=== PATIENT | female | born 1950 | race Caucasian/White ===

== ENCOUNTER 2018-08-30 11:34 | Inpatient (IN) | payer OTHER, SELFPAY ==
[2018-08-17 08:16] VITALS: BMI 30.2
[2018-08-30] VITALS (14 sets, daily range): BP systolic 90–126; BP diastolic 52–81; PULSE 57–80; RESP 9–25; TEMP 35.8–36.9; O2SAT 93–100; BMI 29.6
--- NOTE | 2018-08-30 | DI.RAD.S_ITS ---
PROCEDURE: XR PELVIS 1-2V INDICATIONS: INTRA OPERATIVE HIP TECHNIQUE: 1 view of the lower pelvis acquired. COMPARISON: None. FINDINGS: Bones: Patient is status post total hip arthroplasty, with hardware components in expected positions. The hip joint appears congruent. The visualized bony structures appear intact. Soft tissues: Overlying postoperative changes are noted. No suspicious soft tissue densities. IMPRESSION: Expected appearance of left hip arthroplasty. Dictated by: Zoey Lloyd M.D. on 08/30/2018 at 17:11 Approved by: Zoey Lloyd M.D. on 08/30/2018 at 17:12
--- NOTE | 2018-08-30 06:00 | DI.RAD.S_ITS ---
PROCEDURE: XR HIP W PEL IF DONE LT 2V INDICATIONS: Postop left total hip arthroplasty TECHNIQUE: AP pelvis and lateral view of the left hip acquired. COMPARISON: [facility], XR PELVIS WITH LATERAL HIP LEFT, 05/25/2018, 11:10. FINDINGS: Bones: Patient is status post left hip arthroplasty, with hardware components in expected positions. The hip joint appears congruent. The visualized bony structures appear intact. Soft tissues: Overlying postoperative changes are noted. No suspicious soft tissue densities. IMPRESSION: Left hip arthroplasty as above. Dictated by: Bethanie Judd M.D. on 08/30/2018 at 17:12 Approved by: Bethanie Judd M.D. on 08/30/2018 at 17:13
[2018-08-30] MEDS: LACTATED RINGERS 1,000 ML 42 ML IV ×2 (12:11→16:15)
[2018-08-30] MEDS: VANCOMYCIN 1,000 MG/200 ML FROZ.PIGGY 200 MG IV (12:58)
[2018-08-30] MEDS: PREGABALIN 75 MG CAPSULE PO (13:07)
[2018-08-30] MEDS: ACETAMINOPHEN 325 MG TABLET 975 MG PO ×2 (13:07→20:48)
[2018-08-30] MEDS: MELOXICAM 7.5 MG TABLET 15 MG PO (13:09)
--- NOTE | 2018-08-30 13:37 | PM.PREOP ---
Pre-operative Note Interval Note History & Physical reviewed/Exam performed by Physician: Yes Changes to H&P: No
--- NOTE | 2018-08-30 13:42 | P.OP_ITS ---
Operative Date/Time/Diagnoses Date of procedure: 08/30/18 Time of procedure: 13:58 Pre-op diagnosis: Left hip osteoarthritis Post-op diagnosis: same Procedure & Clinicians Procedure: Left total hip arthroplasty Same procedure as scheduled: Yes Indications: The patient has had progressively worsening left hip pain with radiographic changes consistent with arthritis. Non-operative management has failed and the patient has requested total hip replacement. The risks, benefits and alternatives to surgery were discussed with the patient prior to proceeding. Risks discussed included, but were not limited to, failure to relieve pain, leg length discrepancy, dislocation, stiffness, infection, nerve damage, deep venous thrombosis, pulmonary embolism, stroke, coma, heart attack, permanent paralysis and , as well as the potential need for eventual revision of the prosthetic. Surgeon: Alyx Bird Reeling And Tubing Machine Operator: Vida Harris Anesthesia Type: General and Spinal Operative Notes Findings: Severe left hip arthritis, adequate stability Closure Type: primary Specimen(s): none sent Prosthetic devices, grafts, tissues, transplants, or devices: Bird and Nephew R3 54 x 36, anthology 5 HO, -3 x 36 Applied: drain(s) Estimated Blood Loss (mL): 250 Blood products transfused: none Procedure in detail: The patient was seen in the pre-operative area, where the patient identified the left hip as the operative site and this was marked with my initials. The patient received pre-operative antibiotics and was taken to the operating room and placed on the operative table in the right lateral decubitus position after satisfactory anesthesia. A time signal wirer out was performed. The left leg was prepared from the ankle to the iliac crest with ChloroPrep in the usual fashion and draped through sterile drapes. The hip was approached through an approximately 20 cm incision centered over the greater trochanter and curving gently posteriorly as it went proximally. This was carried sharply to the fascia tien, which was divided and retracted with a self retaining retractor. The trochanteric bursa was excised with care being taken to avoid the sciatic nerve, which was identified and protected throughout the case. The short external rotators were incised and the capsulomuscular flap was raised and tagged for later repair. The hip was dislocated, and a femoral neck osteotomy performed approximately 10 mm above the lesser trochanter. Retractors were placed around the femur. The canal was opened with a box cutting osteotome, followed by a T handled reamer and a lateralizing reamer. The chili pepper broach was then used, followed by sequential broaching until there was good stability of the broach in the femur. Retractors were placed to expose the acetabulum. The labrum and central soft tissues were removed. Reaming was performed initially going up in 2 mm increments, then 1 mm increments until good bite was obtained with an odd sized reamer. The cup 1 mm larger than the last reamer was then inserted using the appropriate anteversion guides. A trial neutral liner was placed. The broach was placed in the canal. A trial head and neck were then placed and the hip relocated and checked for leg length and stability. An intraoperative film confirmed the component position and no evidence of fracture. The patient was stable in the position of sleep, of squatting, and could be put through a range of motion with 45 degrees internal rotation without dislocation. At 90 degrees flexion, internal rotation to 70 was possible before dislocation. This was felt to be satisfactory and the appropriate components were opened, and the trials were removed. The acetabular liner was impacted into position. The final stem was then impacted into the prepared femoral canal. A brief Betadine soak was performed while trialing with head options. The hip was meticulously irrigated with normal saline. Finally the femoral head was impacted onto the stem. The acetabulum was cleared of all material and the hip relocated one final time. The capsulomuscular flap was then repaired to the greater trochanter though an awl hole using the tag sutures. The short external rotators were repaired with a nonabsorbable stitch. A deep drain was placed and brought out anteriorly. The fascia tien was closed with Vicryl. The subcutaneous layer was closed with barbed sutures and surgical glue. An Aquacel Ag dressing was applied and the patient was taken to recovery having tolerated the procedure well. Complications: none Condition: stable Disposition: Acute Care Plan for aftercare: The patient will be maintained on a standard total hip replacement protocol with weight bearing as tolerated and posterior hip precautions. The patient will receive Aspirin and sequential compression devices for DVT prophylaxis. The patient will be discharged home when safe for the home environment.
[2018-08-30] MEDS: CEFAZOLIN 2 GM/100 ML FROZ.PIGGY IV ×2 (14:20→22:09)
--- NOTE | 2018-08-30 14:44 | SUR.OPER ---
Right Lateral on padded OR bed. Gel axillary roll. Arms secured on padded armboard with pillow supporting top arm. Padded hip positioner braces x4 - anterior and posterior chest and pelvis. Additional gel pad used anterior pelvis. Gel pad under bottom leg from knee to foot and secured with tape over sheet.
[2018-08-30] MEDS: BUPIVACAINE 0.25% W/ EPI VIAL 50 ML INJ (14:51)
[2018-08-30] MEDS: TRANEXAMIC ACID 1,000 MG VIAL 1000 MG INJ ×2 (14:52→16:00)
[2018-08-30] MEDS: BUPIVACAINE LIPOSOME 266 MG/20 ML VIAL INJ (14:52)
[2018-08-30] MEDS: POVIDONE-IODINE 15 ML, SODIUM CHLORIDE 0.9% 250 ML TOP (14:54)
[2018-08-30] MEDS: ONDANSETRON 4 MG/2 ML INJ IV ×2 (17:04→17:31)
[2018-08-30] MEDS: METOCLOPRAMIDE 10 MG/2 ML INJ IV (17:17)
--- NOTE | 2018-08-30 17:32 | SUR.PHASEI ---
nausea intermittent, medicated. Queaze provided. O2 sat dropping to 86%ra while dozing, upper 90s while awake. 2lnc applied.
--- NOTE | 2018-08-30 18:02 | SUR.PHASEI ---
Pt transferred to floor with o2 monitoring. Report to Ladonna. VS stable. + pp x2, weak movement to ble, stronger on lle. Lt hip drsg cdi. IV saline locked. Belongings bag, striped bag, glasses and cell phone with patient.
--- NOTE | 2018-08-30 19:27 | PC.NURSE ---
evening shift note- Patient arrived to room from pacu via bed. Patient alert and oriented and and able to make needs known to staff. No complaints of pain or discomfort this time. Patent reports sti9ll feeling numb. Patient hernandez to to wiggle toes on both feet at this time. Patient oriented to bed and bed control, room. lights, phone, ,menu, and call villanueva/tv remote. safety measures in place. call villanueva and phone within reach. will contiue to monitor.
[2018-08-30] MEDS: LACTATED RINGERS 1,000 ML 125 ML IV (19:39)
[2018-08-30] MEDS: ASPIRIN EC 81 MG TABLET PO (20:49)
[2018-08-30] MEDS: DICLOFENAC 75 MG DR TABLET PO (20:50)
[2018-08-30] MEDS: ATORVASTATIN 10 MG TABLET PO (20:50)
[2018-08-30] MEDS: DOCUSATE 100 MG CAPSULE PO (20:51)
[2018-08-30] MEDS: METFORMIN HCL 500 MG TABLET PO (20:51)
[2018-08-30] MEDS: OXYCODONE IR 5 MG TABLET PO (22:09)
[2018-08-31] VITALS (7 sets, daily range): BP systolic 97–115; BP diastolic 49–60; PULSE 69–85; RESP 15–18; TEMP 35.5–37; O2SAT 96–99
[2018-08-31] MEDS: OXYCODONE IR 5 MG TABLET PO ×4 (02:22→15:41)
[2018-08-31] MEDS: LACTATED RINGERS 1,000 ML 125 ML IV (04:10)
[2018-08-31] MEDS: ONDANSETRON 4 MG/2 ML INJ IV (04:22)
--- NOTE | 2018-08-31 04:42 | PC.NURSE ---
Pt is AxOx3, tolerating room air. Pain is 4 out of 10, Percolone 5mg given with relief. A little nauseous this morning, zofran and egg salad sandwich given. IVF running as ordered. Hip dressing is clean, dry, and intact. One person assist to Bedside commode. Hemovac with sero-sanguinous drainage.
[2018-08-31] MEDS: CEFAZOLIN 2 GM/100 ML FROZ.PIGGY IV (05:21)
[2018-08-31 05:38] LABS: Hemoglobin 11.9 g/dL (12.0-16.0)
[2018-08-31] MEDS: ASPIRIN EC 81 MG TABLET PO ×2 (08:54→20:50)
[2018-08-31] MEDS: DOCUSATE 100 MG CAPSULE PO ×2 (08:54→20:50)
[2018-08-31] MEDS: METFORMIN HCL 500 MG TABLET PO ×2 (08:54→20:50)
[2018-08-31] MEDS: ACETAMINOPHEN 325 MG TABLET 975 MG PO ×3 (08:55→20:50)
[2018-08-31] MEDS: DICLOFENAC 75 MG DR TABLET PO ×2 (08:56→20:50)
--- NOTE | 2018-08-31 09:08 | PM.PNPO.1 ---
Subjective Date Patient Seen: 08/31/18 Time Patient Seen: 09:09 Interval history: Hospital day 2, postop day 1 following left posterior total hip arthroplasty by Dr. Bird. Patient states she did not get much sleep last night. Pain has been controlled with oxycodone. She has not had any physical therapy yet. Does have Hemovac in place. Patient has been to bedside commode for urination. She has a [facility] patient. She is scheduled to go to [facility]. Patient is concerned about leaving too soon she lives on [facility]. Exam Vital Signs (past 8 hours): - 08/31/18 04:45 08/31/18 08:00 Temperature 97.5 F L 97.3 F L Pulse Rate 85 83 Respiratory Rate 16 18 Blood Pressure 97/49 L 101/49 L Pulse Oximetry 96 97 Oxygen Delivery Method Room Air Oxygen Flow Rate 2 Narrative Exam Narrative: Alert, oriented no acute distress resting in bed. Legs Aquacel dressing to left hip is dry without drainage or inflammation. Hemovac in place. No calf pain or swelling. Pulses symmetrical. Objective Labs Result Diagrams: 08/31/18 05:15 Labs: Laboratory Results - last 24 hr 08/31/18 05:15 Hgb 11.9 L Hct 35.0 L Assessment & Plan Post-op Postoperative Procedures Operation Date: 08/30/18 14:00 Actual Procedures Side Surgeon p Total Hip Arthroplasty Left Alyx Alla Bird MD Plan: Patient will work with PT today. Anticipate DC Hemovac later today. Discussion with patient about possibly staying 1 more night versus going home later today pending PT clearance. She does have postoperative pain medication at home. Quality VTE Deep Vein Thrombosis/Pulmonary Embolism Present on Admission: No
--- NOTE | 2018-08-31 09:11 | P.PN_ITS ---
Subjective Date Patient Seen: 08/31/18 Time Patient Seen: 09:09 Interval history: Hospital day 2, postop day 1 following left posterior total hip arthroplasty by Dr. Bird. Patient states she did not get much sleep last night. Pain has been controlled with oxycodone. She has not had any physical therapy yet. Does have Hemovac in place. Patient has been to bedside commode for urination. She has a [facility] path patient. She is scheduled to go to [facility]. Patient is concerned about leaving too soon she lives on [facility]. Exam Vital Signs (past 8 hours): - 08/31/18 04:45 08/31/18 08:00 Temperature 97.5 F L 97.3 F L Pulse Rate 85 83 Respiratory Rate 16 18 Blood Pressure 97/49 L 101/49 L Pulse Oximetry 96 97 Oxygen Delivery Method Room Air Oxygen Flow Rate 2 Narrative Exam Narrative: Alert, oriented no acute distress resting in bed. Legs Aquacel dressing to left hip is dry without drainage or inflammation. Hemovac in place. No calf pain or swelling. Pulses symmetrical. Objective Labs Result Diagrams: 08/31/18 05:15 Labs: Laboratory Results - last 24 hr 08/31/18 05:15 Hgb 11.9 L Hct 35.0 L Assessment & Plan Post-op Postoperative Procedures Operation Date: 08/30/18 14:00 Actual Procedures Side Surgeon p Total Hip Arthroplasty Left Alyx Alla Bird MD Plan: Patient will work with PT today. Anticipate DC Hemovac later today. Discussion with patient about possibly staying 1 more night versus going home later today pending PT clearance. She does have postoperative pain medication at home. Quality VTE Deep Vein Thrombosis/Pulmonary Embolism Present on Admission: No
--- NOTE | 2018-08-31 09:56 | PT.IIE ---
Current Diagnoses Unilateral primary osteoarthritis, left hip (08/30/18) Surgery Performed Operation Date: 08/30/18 14:00 Actual Procedures p Total Hip Arthroplasty(Left) - Alyx Bird MD Surgical History (Last Updated 08/19/18 @ 09:07 by Cristiane Jesus, RN) History of bunionectomy of both great toes (Acute) History of carpal tunnel release (Acute) Hx of nasal septoplasty (Acute) S/P trigger finger release (Acute ~04/2018) Status post laparoscopic Crista fundoplication (Acute) Medical History (Last Updated 08/17/18 @ 09:03 by Cristiane Jesus RN) Bilateral primary osteoarthritis of hip (Acute) GERD (gastroesophageal reflux disease) (Acute) Hyperlipidemia (Acute) Insomnia (Acute) Rosacea (Acute) Shingles (Acute) Type 2 diabetes mellitus (Acute) Physical Therapy Inpatient Evaluation/Re-Eval M1 PT/OT-IP Prior Functional Status Start: 08/31/18 12:20 Freq: NEEDED Status: Active Protocol: Document 08/31/18 09:56 AB (Rec: 08/31/18 12:46 AB [id number]) Medical Review Prior Functional Status Medical History Reviewed Yes Communication able to make needs known Mobility and Gait stated that she is independent with all mobilities and ambulation without AD. able to walk ~ 3 miles/day Social History Household Members spouse Living Arrangements House Number of Floors (Floors) Two Floors Number of Stairs To Enter/Railing? no steps to enter 2+landing+14 steps with L rail ascending Home Environment Standard Height Toilet Walk in Shower Built-In Shower Seat Home Equipment Front Wheel Walker Straight Cane Crutches Raised Toilet Seat w/Armrests Tub Transfer Bench Logistics Loss Prevention Manager Sock Aid Grab Bars In Shower Employment Status Retired Additional Social History Comment pt stated that her spouse has stage IV cancer. Her daughter from [facility] will stay for ~ 2 weeks to assist her and her spouse and afterwards, she has friends that can assist her when needed. pt plans to stay on the main level of the house for a few days and will use 2nd floor bedroom afterwards Pt has a walk in shower on main level of the house but a tub shower on 2nd flloor M2 PT-IP Current Condition Start: 08/31/18 12:20 Freq: NEEDED Status: Active Protocol: Document 08/31/18 09:56 AB (Rec: 08/31/18 12:46 AB [id number]) Physical Therapy Current Condition Current Condition Evaluation Date 08/31/18 Treatment Diagnosis s/p L JULIANO posterior approach; difficulties in walking Onset Date 08/30/18 Precautions Posterior Hip Precautions No Hip Flexion > 90 degrees No Hip Internal Rotation No Hip Adduction Other Precautions falls Weight Bearing Status Weight Bearing Status Weight Bear as Tolerated M3 PT-IP Subjective Start: 08/31/18 12:20 Freq: NEEDED Status: Active Protocol: Document 08/31/18 09:56 AB (Rec: 08/31/18 12:46 AB [id number]) Subjective Physical Therapy Visit Type Type Initial Evaluation Visit Start Time 09:56 Visit Stop Time 10:54 Total Visit Minutes 58 Number of COMMUNITY RECREATION PROGRAMMER Visits 0 Physical Therapy Visit Comments Patient Comments agreeable to do PT Therapy Pain Assessment Pain When Pain Assessed At Rest Pain Present Pain Present Pain Reported Location Left Hip Intensity 5 Scale Used Numeric (1 - 10) Pain Management Techniques Apply Cold Re-positioning Timing of Activity with Medications M4 PT-IP Mobility and Gait Start: 08/31/18 12:20 Freq: NEEDED Status: Active Protocol: Document 08/31/18 09:56 AB (Rec: 08/31/18 12:46 AB [id number]) PT-Bed Mobility Assessment Supine to Sit Supine to Sit Standby Assistance Sit to Supine Sit to Supine Standby Assistance PT-Transfer Assessment Sit to and From Stand Sit to and from Stand Contact Guard Assistance Equipment Transfer Assistive Device Gait Belt Front Wheeled Walker Orthotic/Prosthetic Devices or Brace: No Transfers Transfer Destination Toilet Transfer Technique pt ambulated to the toilet Transfer Ability Level of Assist Standby Assistance 1 Person Assistance Use of Upper Extremities Comments Mobility Comments pt ambulated in room and requested to use the toilet afterwards. pt ambulated to the toilet using FWW SBA. required cues to maintain L hip posterior precautions. pt ambulated out of the toilet to the sink using FWW SBA. pt was able to maintain standing using FWW for support SBA while completing grooming. pt agreed to sit on chair afterwards. positioned pt on chair. ice pack positioned. call light and table placed within reach. Gait Assessment Gait Gait Assistance Required: Standby Assistance Distance (Feet) 35 Assistive Devices Assistive Device Gait Belt Front Wheeled Walker Orthotic/Prosthetic Devices or Brace: No Gait Deviations General Gait Pattern Antalgic Decreased Stride Length Decreased Feet Clearance Factors Limiting Gait Function Factors Limiting Gait Function Decreased Activity Tolerance Decreased Strength Limited Range of Motion Pain Poor Balance Poor Safety Awareness PT-Balance Assessment Sitting Balance and Reactions Static Sitting Balance Ability Good Dynamic Sitting Balance Ability Good Standing Balance and Reactions Static Standing Balance Ability Fair Dynamic Standing Balance Ability Fair Device Used FWW M5 PT-IP Objective Assessments Start: 08/31/18 12:20 Freq: NEEDED Status: Active Protocol: Document 08/31/18 09:56 AB (Rec: 08/31/18 12:46 AB [id number]) Orientation Orientation/Cognition Level of Alertness Alert Orientation Name Age Birthday Year Place Situation Language Function Ability No Deficits Noted Safety Awareness Understands Safety Issues Memory Description Short Term Impaired Gross Range of Motion Lower Extremity ROM Assessment Within Functional Limits Strength Lower Extremity Strength Assessment Left Impaired Knee 4-/5 Sensation Assessment Sensation Gross Sensation WNL Muscle Tone Muscle Tone WNL Yes M6 PT-IP Treatment Start: 08/31/18 12:20 Freq: NEEDED Status: Active Protocol: Document 08/31/18 09:56 AB (Rec: 08/31/18 12:46 AB [id number]) Physical Therapy Treatment Exercises Exercises Heel Slides Education Education Provided Precautions Weight Bearing Status Post-Op Packet Safety M7 PT-IP Assessment and Plan Start: 08/31/18 12:20 Freq: NEEDED Status: Active Protocol: Document 08/31/18 09:56 AB (Rec: 08/31/18 12:46 AB [id number]) PT Summary Assessment and Plan Potential Rehabilitation Potential Good Status of Condition at Evaluation Stable Summary Impairments Pain ROM Strength Balance Coordination Sensation Tone Cognition Bed Mobility Transfers Gait Activity Tolerance Assessment Summary pt requiring SBA to CGA with mobility and will possible progress during hospital stay. stair climbing training will be completed prior to d/c and if able to safely complete, pt may go home when medically stable. Goals Bed Mobility Goal Independent Transfer Goal Independent Front Wheeled Walker Gait Goal Independent Front Wheel Walker Gait Distance 200 Other Goals up/down 17 steps L rail ascending SBA Days to Meet Goals 3 Frequency of Treatment Frequency Of Treatment Twice a Day Treatment Plan Physical Therapy Treatment Plan Bed Mobility Training Transfer Training Gait Training Therapeutic Exercise Balance Retraining Post Op Education Discharge Planning Hot or Cold Pack Neuromuscular Re-ed Coordination Retraining Manual Therapy Other Recommendations and Next Treatment ambulation, stair climbing Focus Recommendations To Nursing Amount of Assist Needed 1 Person Assist Discharge Recommendations PT Discharge Recommendations Home with Assistance Outpatient PT
--- NOTE | 2018-08-31 11:11 | CM.DPC ---
Addendum entered by LATISHA Lopez 09/02/18 10:50: Correction: DC 09.01.18 Original Note: Addendum entered by LATISHA Lopez 09/02/18 10:50: DC Home w/ no barriers or DC needs, as expected. JW Original Note: DCP/Assessment: Reviewed chart. Patient is a 68yr old female admitted to [facility] for left JULIANO performed on 08-30-[address] Bird. Primary payor is [facility]. PCP is Dr. Solis at [facility]. Met with patient explained CM/SW role. Patient reports that she plans to d/c home when medically stable. Patient hopes to discharge tomorrow 09-01-18. Patient resides in [place] with her spouse/Jona whom is currently with Stage IV CA. Patient's daughter/Elisa in town to assist. Patient has FWW for home use and [facility]. At this time no additional d/c planning needs identified. P: Home when medically stable. LATISHA Mackenzie Discharge Planning/Care Management CM Discharge Assessment Start: 08/31/18 11:10 Freq: Status: Active Protocol: Document 08/31/18 11:10 KJS (Rec: 08/31/18 11:11 [facility] [id number]) Discharge Planning Assessment Assigned Innersole Fitter LATISHA Mackenzie Contact Information Jona Batres (spouse) [phone] Advance Directives? Yes Advance Directives on File No History Provided By Patient Has Patient been admitted in last 30 No days? Prior Living Arrangements House Household Members spouse Type of transporation used prior to Drives own vehicle admit Independent with ADL's Yes Is patient alert and oriented? Yes Caregiver for Another No DME Already Rented / Owned FWW / Walker Patient/Family Preference OP PT Therapy Barriers to Discharge No Discharge Plan Home Referrals Initiated None needed Whiteboard Updated in Patient Room with Yes name and ext. # of Innersole Fitter Review Status In Process Please Provide Date Initial DC 08/31/18 Assessment Was Performed Next Review Type Continued Stay Review Pre-Anesthesia Assessment Start: 08/17/18 08:16 Freq: Status: Complete Protocol: Document 08/17/18 08:16 CAB (Rec: 08/17/18 09:06 CAB [id number]) Pre-Anesthesia Assessment PAC Comment PCP clearance, labs, EKG scanned to record. has stage IV cancer, daughter flying in from [facility] to assist with care. Patient Information Reviewed Via Chart Review Diagnostic Results BMP/CMP CBC EKG Other Primary Care Provider [facility] Clearance Received Yes Seen Specialist in Last 12 Months Yes Specialist Seen Orthopedist Primary Language Serbian Motorcycle Assembler Required No Height 170.18 cm Weight 87.543 kg Body Mass Index (BMI) 30.2 Hearing Ability Normal Visual Impairment No Limitations Visual Assist None Dentition Type Teeth, Natural Present Barriers to Learning None Other Aids No Hx Anesthesia Reactions No Hx Family Anesthesia Reaction No Hx Malignant Hyperthermia No Hx Blood Transfusions No Anesthesia Review Requested No Supervisor Solder Making No alcohol intake current alcohol intake frequency 0-2 drinks per day Smoking Status Never smoker Substance Use Type does not use Pain Present Pain Reported Musculoskeletal Symptoms Difficulty Walking Joint Pain History of Falling (Recent or History of No ) Patient is completely paralyzed or No completely immobile Mental Status Oriented to own ability Is patient on oxygen? No Does patient have TEIXEIRA/SOB No Currently Taking a Beta Brandi No Can You Climb a Flight of Stairs Without Yes SOB Hx Chest Pain No Hx SOB No Hx Syncope or Dizziness No Anti-Coagulant Therapy No Has a Kindergartner No Cardiac Testing No Hx Pacemaker/ICD No Pacemaker Rep Required? No Cardiac Clearance Received Not Applicable Comment Walks 3+ miles daily, works out at gym Diet Type At Home Regular dysphagia No Urinary Catheter Present No Hx Urinary Self Catheterization No Diabetes Yes: Pt checks BS 5x/week HgbA1C 6.1 Date 06/21/18 Patient No Lactating No Hx Drug Resistant Organism No Presence of External or Internal Medical No Devices Have you traveled outside the [facility] in the last 30 days? Marital Status Lives With spouse Prior Living Arrangements House Number of Floors (Floors) Two Floors Number of Stairs To Enter/Railing? none Support System Child/Children Patient Discharge Plan Description Return Home Comment Daughter will stay with patient to assist w/care at [place] Feels Safe in Current Environment Yes Been Physically Hurt or Threatened By a No Person in Current Environment Do you have thoughts of harming yourself None or others? Are you currently considering suicide? No Do you have a plan to hurt yourself or No Plan others? Comment has stage IV Cancer Do You Have Any Spiritual Beliefs That No May Affect Your HC Choices? Do You Have Any Cultural Practices That No May Affect Your HC Choices? Comment Gennaro Who Can We Speak to About Patient's Care Family, friends Identifying Code for Release of Patient Declines to issue Information Health Care Proxy/Next of Kin Jona () Juli ( daughter) Health Care Proxy Phone Number Jona: [phone] Juli: Pt will update dos Emergency Contact Name Jona () Juli ( daughter) Emergency Contact Phone Number Jona: [phone] Juli: Pt will update dos Advance Directives? Yes Advance Directives on File No Requested Patient Bring Advanced Yes Directives DOS Power of Utility Bill Collection Clerk Yes Power of Utility Bill Collection Clerk Name Jona () Power of Utility Bill Collection Clerk PAC Instructions Do not shave/clip surgical site Durable medical equipment Medications to take/avoid Nasal antibiotic No ETOH/petroleum product on skin DOS NPO Pre-surgical wash Sturdy shoes/comfortable clothes Do not bring valuables and remove jewelry
--- NOTE | 2018-08-31 12:00 | PC.NURSE ---
Addendum entered by Liliane Mackenzie R.N. 08/31/18 12:04: Pt states having low BP is her normal. 110/60's. BP today have been 101/49 and 104/56. Pt states she is asymptomatic with ambulation. Will monitor. Original Note: Day Shift- Pt A&OX4, able to make needs known using call light. Left hip aquacel dressing CDI, hemovac in place with CDI tegaderm over insertion site. CMS+. Ice pack to left hip intermittently. Rates 3-4/10 aching to left hip that intermittently radiates to lower back and distal of incision area. Pt reports controlled with prn Oxycodone. OOB with 1PA using FWW. Plan to discharge home tomorrow per pt. No other voiced concerns.
--- NOTE | 2018-08-31 14:40 | PT.IPTN ---
Current Diagnoses Unilateral primary osteoarthritis, left hip (08/30/18) Surgery Performed Operation Date: 08/30/18 14:00 Actual Procedures p Total Hip Arthroplasty(Left) - Alyx Bird MD Physical Therapy Treatment Note M2 PT-IP Current Condition Start: 08/31/18 12:20 Freq: NEEDED Status: Active Protocol: Document 08/31/18 09:56 AB (Rec: 08/31/18 12:46 AB [id number]) Physical Therapy Current Condition Current Condition Evaluation Date 08/31/18 Treatment Diagnosis s/p L JULIANO posterior approach; difficulties in walking Onset Date 08/30/18 Precautions Posterior Hip Precautions No Hip Flexion > 90 degrees No Hip Internal Rotation No Hip Adduction Other Precautions falls Weight Bearing Status Weight Bearing Status Weight Bear as Tolerated M3 PT-IP Subjective Start: 08/31/18 12:20 Freq: NEEDED Status: Active Protocol: Document 08/31/18 14:40 AB (Rec: 08/31/18 16:17 AB [id number]) Subjective Physical Therapy Visit Type Type Treatment Note Visit Start Time 14:40 Visit Stop Time 15:15 Total Visit Minutes 35 Number of RECAPPER Visits 0 Physical Therapy Visit Comments Patient Comments pt agreeable to do PT Therapy Pain Assessment Pain When Pain Assessed At Rest Pain Present Pain Present Pain Reported Location Left Hip Intensity 3 Scale Used Numeric (1 - 10) Pain Management Techniques Apply Cold Timing of Activity with Medications M4 PT-IP Mobility and Gait Start: 08/31/18 12:20 Freq: NEEDED Status: Active Protocol: Document 08/31/18 14:40 AB (Rec: 08/31/18 16:17 AB [id number]) PT-Transfer Assessment Sit to and From Stand Sit to and from Stand Standby Assistance Contact Guard Assistance Equipment Transfer Assistive Device Bed Rail Front Wheeled Walker Orthotic/Prosthetic Devices or Brace: No Gait Assessment Gait Gait Assistance Required: Standby Assistance Distance (Feet) 350 Able to Maintain Weight Bearing Status Yes During Gait Assistive Devices Assistive Device Gait Belt Front Wheeled Walker Orthotic/Prosthetic Devices or Brace: No Gait Deviations General Gait Pattern Antalgic Decreased Stride Length Decreased Feet Clearance Factors Limiting Gait Function Factors Limiting Gait Function Decreased Activity Tolerance Decreased Strength Limited Range of Motion Pain Poor Balance Comments Gait Comments pt ambulated towards the stairs using FWW ~ 350 ft SBA and back towards to her room ~ 350ft SBA. Stair Climbing Assessment Evaluation Level of Assist On Stairs Standby Assistance Devices Stair Climbing Assistive Devices Left Railing Technique/Endurance Stair Climbing Direction Ascend and Descend Stair Climbing Technique Step to Step Number of Steps Climbed 3 Query Text: Stair Climbing Set # Repetitions (reps) 5 M5 PT-IP Objective Assessments Start: 08/31/18 12:20 Freq: NEEDED Status: Active Protocol: Document 08/31/18 09:56 AB (Rec: 08/31/18 12:46 AB [id number]) Orientation Orientation/Cognition Level of Alertness Alert Orientation Name Age Birthday Year Place Situation Language Function Ability No Deficits Noted Safety Awareness Understands Safety Issues Memory Description Short Term Impaired Gross Range of Motion Lower Extremity ROM Assessment Within Functional Limits Strength Lower Extremity Strength Assessment Left Impaired Knee 4-/5 Sensation Assessment Sensation Gross Sensation WNL Muscle Tone Muscle Tone WNL Yes M6 PT-IP Treatment Start: 08/31/18 12:20 Freq: NEEDED Status: Active Protocol: Document 08/31/18 14:40 AB (Rec: 08/31/18 16:17 AB [id number]) Physical Therapy Treatment Education Education Provided Precautions Safety M7 PT-IP Assessment and Plan Start: 08/31/18 12:20 Freq: NEEDED Status: Active Protocol: Document 08/31/18 14:40 AB (Rec: 08/31/18 16:17 AB [id number]) PT Summary Assessment and Plan Potential Rehabilitation Potential Good Summary Impairments Pain ROM Strength Balance Coordination Sensation Bed Mobility Transfers Gait Activity Tolerance Progress Towards Goals Progressing Toward Goals Assessment Summary Pt doing well with mobility and may go home when medically stable. Goals Bed Mobility Goal Independent Transfer Goal Independent Front Wheeled Walker Gait Goal Independent Front Wheel Walker Gait Distance 200 Other Goals up/down 17 steps L rail ascending SBA Days to Meet Goals 3 Frequency of Treatment Frequency Of Treatment Twice a Day Treatment Plan Physical Therapy Treatment Plan Bed Mobility Training Transfer Training Gait Training Therapeutic Exercise Balance Retraining Post Op Education Discharge Planning Hot or Cold Pack Neuromuscular Re-ed Coordination Retraining Manual Therapy Other Recommendations and Next Treatment ambulation, stair climbing Focus Recommendations To Nursing Amount of Assist Needed 1 Person Assist Discharge Recommendations PT Discharge Recommendations Home with Assistance Outpatient PT
[2018-08-31] MEDS: hydrOXYzine pamoate 25 MG CAPSULE PO (20:50)
[2018-08-31] MEDS: ATORVASTATIN 10 MG TABLET PO (20:50)
[2018-08-31] MEDS: ZOLPIDEM 5 MG TABLET PO (20:53)
--- NOTE | 2018-08-31 23:30 | PC.NURSE ---
Evening shift Dr. Bird came to see pt this shift and discontinued the hemavac, and gave a new order for vistaril as pt was complaining of itching. Pt pain well controlled with acetaminophen and 1 time dose of oxycodone. Aquacel dressing CDI, +CSM.
[2018-09-01 00:10] VITALS: BP 116/59; PULSE 69; RESP 15; TEMP 36.3; O2SAT 97
[2018-09-01 06:39] VITALS: BP 121/60; PULSE 74; RESP 16; TEMP 36.3; O2SAT 100
--- NOTE | 2018-09-01 07:15 | PM.DS.1 ---
History of Present Illness Date Patient Seen: 09/01/18 Chief complaint: Total Hip Arthroplasty [id number] Narrative: Patient seen bedside s/p left posterior total hip arthroplasty on 08/30/[address] Bird. Patient is postop day 2. Patient is doing well, her pain is improved and she has been ambulating with physical therapy. She is ready to go home today. Discharge Providers Date of admission: 08/30/18 11:34 Discharge Date: 09/01/18 Primary care physician: Parminder Solis MD Consults: 08/30/18 06:00 Consult to Anesthesiology Routine Comment: Consulting Provider: Anesthesiologist Reason for consultation: Regional block for post operative pain control 08/30/18 19:07 Consult to Discharge Planning Routine Comment: Consult to Physical Therapy Evaluate & Treat Comment: posterior Physician Instructions: post op JULIANO protocol Consult to Respiratory Therapy Evaluate & Treat Comment: Physician Instructions: Evaluate and treat Discharge provider: Kellie Mendoza PA-C Summary Discharge Diagnosis: Left hip osteoarthritis Hospital Course: Patient was admitted to the hospital status post left total hip arthroplasty with Dr. Bird on 08/30/2018. Patient tolerated the procedure well with no major complications. Patient was transferred to the acute care floor where she was placed on the standard joint replacement pathway and protocol. She was seen by Physical therapy who recommended that she be discharged home. Patient was stable ready for discharge on 09/01/2018. Status at Discharge Cognitive/behavioral status at discharge: Alert and oriented x3 Functional status at discharge: uses cane/walker Overall status at discharge: patient is progressing back to baseline Exam Vital Signs (past 8 hours): - 09/01/18 00:10 09/01/18 06:39 Temperature 97.3 F L 97.3 F L Pulse Rate 69 74 Respiratory Rate 15 16 Blood Pressure 116/59 L 121/60 Pulse Oximetry 97 100 Fraction of Inspired Oxygen 21 Oxygen Delivery Method Room Air Oxygen Flow Rate 0 Narrative Exam Narrative: Well-developed well-nourished no acute distress alert oriented x3. Dressing on left hip is clean dry and intact with no signs of drainage minimal erythema and edema surrounding the surgical joint. Calf is soft and compressible. Full range of motion at the knee foot and ankle. Neurovascularly intact in the operative extremity Objective Labs Result Diagrams: 08/31/18 05:15 Discharge Plan Discharge Plan Patient Disposition: Home Discharge Med Rec/Prescriptions Prescriptions: New acetaminophen 325 mg Tablet 975 mg PO TID Qty: 0 RF: 0 aspirin 81 mg Tablet,Delayed Release (Dr/Ec) 81 mg PO BID Qty: 0 RF: 0 docusate sodium 100 mg Capsule 100 mg PO BID Qty: 0 RF: 0 oxycodone 5 mg Tablet 5 mg PO Q3HR PRN (Reason: Pain, Moderate (4-6)) Qty: 0 RF: 0 hydroxyzine pamoate 25 mg Capsule 25 mg PO Q6HR PRN (Reason: Itching) Qty: 0 RF: 0 Continued metformin 500 mg Tablet 500 mg PO BID RF: 0 atorvastatin 10 mg Tablet 10 mg PO BEDTIME RF: 0 diclofenac sodium 75 mg Tablet,Delayed Release (Dr/Ec) 75 mg PO BID RF: 0 zolpidem [Ambien] 10 mg Tablet 5 mg PO BEDTIME PRN (Reason: Sleep) RF: 0 Discontinued aspirin [Aspir-81] 81 mg Tablet,Delayed Release (Dr/Ec) 81 mg PO DAILY RF: 0 Follow up/Referrals: Alyx Bird MD [Physician] - (Follow up in 5-7 at your previously scheduled post-operative appointment.) Provider Discharge Instructions Diet: Carb-consistent/Diabetic Activity: Weightbearing as tolerated, follow posterior hip precautions Cold/Heat Therapy: Apply ice 20 minutes at a time as needed for inflammation/swelling. Skin/Wound/Dressing Care Report to your healthcare provider any signs of infection, such as:: chills, fever, night sweats, increased pain, unusual drainage and unusual redness Dressing: Keep dressing clean, dry, and intact. May shower with it in place but no soaking. Visit Report/Discharge Packet Instructions: DI for Hip Replacement Stand Alone Forms: Surgery Discharge Discharge Data Primary Care Provider: Parminder Solis Attending Provider: Alyx Bird Admit Date/Time: 08/30/18 11:34 Discharges patient from system. Discharge Date/Time: 09/01/18 11:14 Quality VTE Deep Vein Thrombosis/Pulmonary Embolism Present on Admission: No
[2018-09-01 08:28] VITALS: BP 118/58; PULSE 83; RESP 15; TEMP 36.6; O2SAT 99
--- NOTE | 2018-09-01 08:32 | PC.NURSE ---
Jazmin has been discharged and anticipates departing around 11am when her family arrives. She will have PT session prior to D/C. VSS. Pain level 3-4/10 and managed by oral pain meds. She is able to get up using walkr and amb. about the room. TERRY hogan. clean/dry/intact.
[2018-09-01] MEDS: ACETAMINOPHEN 325 MG TABLET 975 MG PO (08:55)
[2018-09-01] MEDS: ASPIRIN EC 81 MG TABLET PO (08:56)
[2018-09-01] MEDS: DOCUSATE 100 MG CAPSULE PO (08:56)
[2018-09-01] MEDS: METFORMIN HCL 500 MG TABLET PO (08:56)
[2018-09-01] MEDS: POLYETHYLENE GLYCOL 3350 17 GM POWD.PACK PO (08:57)
[2018-09-01] MEDS: DICLOFENAC 75 MG DR TABLET PO (08:57)
--- NOTE | 2018-09-01 09:13 | PT.IPTN ---
Current Diagnoses Unilateral primary osteoarthritis, left hip (08/30/18) Surgery Performed Operation Date: 08/30/18 14:00 Actual Procedures p Total Hip Arthroplasty(Left) - Alyx Bird MD Physical Therapy Treatment Note M2 PT-IP Current Condition Start: 08/31/18 12:20 Freq: NEEDED Status: Discharge Protocol: Document 08/31/18 09:56 AB (Rec: 08/31/18 12:46 AB [id number]) Physical Therapy Current Condition Current Condition Evaluation Date 08/31/18 Treatment Diagnosis s/p L JULIANO posterior approach; difficulties in walking Onset Date 08/30/18 Precautions Posterior Hip Precautions No Hip Flexion > 90 degrees No Hip Internal Rotation No Hip Adduction Other Precautions falls Weight Bearing Status Weight Bearing Status Weight Bear as Tolerated M3 PT-IP Subjective Start: 08/31/18 12:20 Freq: NEEDED Status: Discharge Protocol: Document 09/01/18 09:13 AB (Rec: 09/01/18 13:21 AB [id number]) Subjective Physical Therapy Visit Type Type Treatment Note Visit Start Time 09:13 Visit Stop Time 09:30 Total Visit Minutes 17 Number of DEPUTY CLERK Visits 0 Physical Therapy Visit Comments Patient Comments pt agreed to do PT Therapy Pain Assessment Pain When Pain Assessed At Rest Pain Present Pain Present Pain Reported Location Left Hip Intensity 4 Scale Used Numeric (1 - 10) Pain Management Techniques Apply Cold Timing of Activity with Medications M4 PT-IP Mobility and Gait Start: 08/31/18 12:20 Freq: NEEDED Status: Discharge Protocol: Document 09/01/18 09:13 AB (Rec: 09/01/18 13:21 AB [id number]) PT-Bed Mobility Assessment Supine to Sit Supine to Sit Standby Assistance Sit to Supine Sit to Supine Standby Assistance PT-Transfer Assessment Sit to and From Stand Sit to and from Stand Standby Assistance 1 Person Assistance Use of Upper Extremities Equipment Transfer Assistive Device Gait Belt Front Wheeled Walker Orthotic/Prosthetic Devices or Brace: No Gait Assessment Gait Gait Assistance Required: Standby Assistance Distance (Feet) 150 Able to Maintain Weight Bearing Status Yes During Gait Assistive Devices Assistive Device Gait Belt Front Wheeled Walker Orthotic/Prosthetic Devices or Brace: No Gait Deviations General Gait Pattern Antalgic Decreased Stride Length Decreased Feet Clearance Factors Limiting Gait Function Factors Limiting Gait Function Decreased Activity Tolerance Decreased Strength Pain Poor Balance Poor Safety Awareness M5 PT-IP Objective Assessments Start: 08/31/18 12:20 Freq: NEEDED Status: Discharge Protocol: Document 08/31/18 09:56 AB (Rec: 08/31/18 12:46 AB [id number]) Orientation Orientation/Cognition Level of Alertness Alert Orientation Name Age Birthday Year Place Situation Language Function Ability No Deficits Noted Safety Awareness Understands Safety Issues Memory Description Short Term Impaired Gross Range of Motion Lower Extremity ROM Assessment Within Functional Limits Strength Lower Extremity Strength Assessment Left Impaired Knee 4-/5 Sensation Assessment Sensation Gross Sensation WNL Muscle Tone Muscle Tone WNL Yes M6 PT-IP Treatment Start: 08/31/18 12:20 Freq: NEEDED Status: Discharge Protocol: Document 09/01/18 09:13 AB (Rec: 09/01/18 13:21 AB [id number]) Physical Therapy Treatment Exercises Exercises Heel Slides Education Education Provided Precautions Weight Bearing Status Safety M7 PT-IP Assessment and Plan Start: 08/31/18 12:20 Freq: NEEDED Status: Discharge Protocol: Document 09/01/18 09:13 AB (Rec: 09/01/18 13:21 AB [id number]) PT Summary Assessment and Plan Potential Rehabilitation Potential Good Summary Impairments Pain ROM Strength Balance Coordination Sensation Tone Cognition Bed Mobility Transfers Gait Activity Tolerance Progress Towards Goals Progressing Toward Goals Assessment Summary pt doing well with mobility and plans to go home today with her daughter to assist her. Goals Bed Mobility Goal Independent Transfer Goal Independent Front Wheeled Walker Gait Goal Independent Front Wheel Walker Gait Distance 200 Other Goals up/down 17 steps L rail ascending SBA Days to Meet Goals 3 Frequency of Treatment Frequency Of Treatment Twice a Day Treatment Plan Physical Therapy Treatment Plan Bed Mobility Training Transfer Training Gait Training Therapeutic Exercise Balance Retraining Post Op Education Discharge Planning Hot or Cold Pack Neuromuscular Re-ed Coordination Retraining Manual Therapy Other Recommendations and Next Treatment ambulation, stair climbing Focus Recommendations To Nursing Amount of Assist Needed Standby Assistance Discharge Recommendations PT Discharge Recommendations Home with Assistance Outpatient PT
== END 2018-09-01 11:14 | disposition home or self-care (01) | DRG 470 ==
PROVIDERS: Admitting Provider Orthopaedic Surgery; PCP Family Medicine; Visit Provider Orthopaedic Surgery
PROC: 0SRB0JZ Replacement of Left Hip Joint with Synthetic Substitute, Open Approach (ICD-10-PCS; CPT 27130; principal; 2018-08-30 14:00)
DX: M16.12 Unilateral primary osteoarthritis, left hip (principal); E11.9 Type 2 diabetes mellitus without complications; Z79.84 Long term (current) use of oral hypoglycemic drugs; E78.5 Hyperlipidemia, unspecified
CPT/HCPCS: 36415; 72170; 73502; 82962; 85014; 85018; 94760; 94762; 97116; 97161; 97530; C1776; C9290; J0690; J2250; J2274; J2405; J2704; J2765; J3010; J3370

== ENCOUNTER → 2019-08-29 17:27 | Outpatient (CLI) | payer OTHER, SELFPAY ==
[2018-08-30 19:11] VITALS: BMI 29.6
--- NOTE | 2019-08-29 | DI.MRI.S_ITS ---
PROCEDURE: MR ANKLE LT WO CON INDICATIONS: Unspecified injury of left Achilles tendon, TECHNIQUE: Noncontrast sagittal T1 spin echo and T2 fast spin echo with fat saturation, axial proton density fast spin echo and T2 fast spin echo with fat saturation, coronal T1 spin echo and T2 fast spin echo with fat saturation through the ankle/hindfoot. COMPARISON: None. FINDINGS: Image quality: Excellent. Bones and joints: No bone marrow contusions or fractures. No hindfoot coalitions. No osteochondral injuries of the talar dome. No pathologic joint effusions. Plantar calcaneal enthesophyte is seen. Medial structures: The posterior tibialis, flexor digitorum longus, and flexor hallucis longus tendons are intact. The posterior tibial neurovascular bundle appears normal within the tarsal tunnel, without extrinsic mass effect. The deep layer (anterior and posterior tibiotalar ligaments) and superficial layer (tibionavicular, tibiospring, and tibiocalcaneal ligaments) of the deltoid ligament appear normal. The spring ligament components (superomedial calcaneonavicular, medioplantar oblique calcaneonavicular, and inferoplantar longitudinal ligaments) are intact. Lateral structures: The anterior talofibular, calcaneofibular, and posterior talofibular ligaments appear intact. More superiorly, the anterior and posterior tibiofibular ligaments appear intact, as is the intermalleolar ligament. The tibiofibular syndesmosis is normal in width at 2 mm or less. The peroneus longus and brevis tendons demonstrate normal location and morphology. Adjacent bony peroneal tubercle and retrotrochlear prominence are normal in size. The sinus tarsi demonstrates normal fatty signal, without edema, fibrosis, or cyst formation. Visualized sinus tarsi components (cervical ligament, interosseous talocalcaneal ligament, roots of the inferior extensor retinaculum) appear normal. The calcaneonavicular and calcaneocuboid components of the bifurcate ligament appear intact. The dorsal calcaneocuboid ligament appears intact. Anterior structures: The tibialis anterior, extensor hallucis longus, and extensor digitorum longus tendons appear intact. The dorsal talonavicular ligament appears intact. Posterior and plantar structures: There is full-thickness rupture of the Achilles tendon approximately 4 cm from its insertion on the posterior calcaneus with roximal retraction of torn tendon fibers and a 2.6 cm fluid-filled gap. Medial and lateral bands of the plantar fascia are of normal thickness. No abductor digiti quinti muscle atrophy to suggest Salomon neuropathy. IMPRESSION: 1. Full-thickness rupture of the Achilles tendon approximately 4 cm from its distal calcaneal insertion with proximal retraction of torn tendon fibers and a 2.6 cm fluid-filled gap at the site of rupture. 2. Extensor, flexor, and peroneus tendons are intact. 3. Medial and lateral ankle ligaments are grossly intact. 4. No marrow edema. No fracture or dislocation. Dictated by: Alfonzo Montemayor M.D. on 08/30/2019 at 10:18 Approved by: Alfonzo Montemayor M.D. on 08/30/2019 at 10:21
== END ==
PROVIDERS: PCP Registered Nurse; Referring Provider Podiatrist; Visit Provider Podiatrist
DX: S86.012A Strain of left Achilles tendon, initial encounter (principal); X58.XXXA Exposure to other specified factors, initial encounter
CPT/HCPCS: 73721

== ENCOUNTER → 2021-11-21 08:51 | Outpatient (CLI) | payer OTHER, SELFPAY ==
[2018-08-30 19:11] VITALS: BMI 29.6
--- NOTE | 2021-11-21 | DI.US.S_ITS ---
LIMITED ULTRASOUND OF LEFT BREAST: 11/21/2021 CLINICAL: Patient returns today to evaluate an asymmetry in the left breast. No prior exams were available for comparison. Color flow and real-time ultrasound of the left breast 6 o'clock, and retroareolar regions were performed. Hyatt scale images of the real-time examination were reviewed. There is a benign 0.8 cm x 0.4 cm x 0.6 cm oval cyst in the left breast central to the nipple anterior depth. This oval cyst is hypoechoic with internal echoes and posterior acoustic enhancement. This correlates with mammography findings. Color flow imaging demonstrates that there is no vascularity present. IMPRESSION: BENIGN There is no sonographic evidence of malignancy. The 0.8 cm x 0.4 cm x 0.6 cm oval cyst in the left breast is consistent with a minimally complicated cyst and is benign. A 1 year screening mammogram is recommended. Findings and recommendations were conveyed to the patient during today's evaluation. This exam was interpreted at Station ID: [id number]. Electronically Signed By: Pranav Jiménez M.D. at/:11/21/2021 11:55:43 letter sent: Normal Exam Ultrasound BI-RADS: 2 Benign
--- NOTE | 2021-11-21 | DI.MG.S_ITS ---
UNILATERAL LEFT DIGITAL DIAGNOSTIC MAMMOGRAM 3D/2D WITH ADDITIONAL VIEWS: 11/21/2021 CLINICAL: Additional evaluation requested from prior study. Comparison is made to exams dated: 07/15/2021 mammogram, 07/13/2019 mammogram, 07/13/2019 ultrasound, and 06/06/2019 mammogram - [facility]. There are scattered fibroglandular elements in left breast. There is an oval low density asymmetry with an indistinct and circumscribed margin in the left breast at 6 o'clock anterior depth. This is seen in additional views. This is not significantly changed. The possible benign irregular low density asymmetry in the left breast at 11 o'clock middle depth is not reproduced and presumably represented superimposed breast tissue. This is not confirmed in additional views. No other significant masses or calcifications are seen in the breast. IMPRESSION: INCOMPLETE: NEEDS ADDITIONAL IMAGING EVALUATION The oval low density asymmetry in the left breast at 6 o'clock anterior depth resembles a cyst or a lymph node and is indeterminate. An ultrasound is recommended for further evaluation and is scheduled to immediately follow this examination. The previously described asymmetry disperses with additional views and is consistent with summation artifact. This exam was interpreted at Station ID: [id number]. NOTE: For mammograms, a report in lay terms will be sent to the patient. Approximately 15% of breast malignancies will not be visualized mammographically. In the management of a palpable breast mass, a negative mammogram must not discourage biopsy of a clinically suspicious lesion. Electronically Signed By: Pranav Jiménez M.D. aty/:11/21/2021 10:08:32 ACR BI-RADS Category 0: Incomplete [id number]
== END ==
PROVIDERS: PCP Registered Nurse; Referring Provider Registered Nurse; Visit Provider Registered Nurse
DX: R92.8 Other abnormal and inconclusive findings on diagnostic imaging of breast (principal); N64.89 Other specified disorders of breast
CPT/HCPCS: 76642; 77065; G0279

== ENCOUNTER → 2022-09-24 14:20 | Outpatient (CLI) | payer OTHER, SELFPAY ==
[2018-08-30 19:11] VITALS: BMI 29.6
[2022-09-24 15:28] LABS: Add Manual Diff / Slide Review NO; Basophils Absolute Auto 100 /uL (0-100); Basophils Percent Auto 0.9 % (0-2); Eosinophils Absolute Auto 100 /uL (0-450); Eosinophils Percent Auto 1.8 % (2-4); Hematocrit 39.8 % (36-46); Hemoglobin 13.4 g/dL (12.0-16.0); Lymphocytes Absolute Auto 2400 /uL (1100-4500); Lymphocytes Percent Auto 34.1 % (25-40); Mean Corpuscular HGB Conc 33.6 % (30-36); Mean Corpuscular Hemoglobin 31.6 PG (26-34); Mean Corpuscular Volume 94.1 fL (80-100); Monocytes Absolute Auto 400 /uL (0-900); Monocytes Percent Auto 5.1 % (3-14); Neutrophils Absolute Auto 4100 /uL (1500-7000); Neutrophils Percent Auto 58.1 % (50-75); Platelet Count 276 X10^3/uL (150-400); Red Blood Cell Count 4.23 X10^6/uL (4.0-5.2); Red Cell Distribution Width 13.7 % (11.6-14.8); White Blood Cell Count 7.1 X10^3/uL (4.5-11.0)
[2022-09-24 16:01] LABS: BUN Creatinine Ratio 29.7 (6-22); Blood Urea Nitrogen 22 mg/dL (7-17); Calcium 10.6 mg/dL (8.4-10.2); Carbon Dioxide 28 mmol/L (22-32); Chloride 101 mmol/L (98-107); Estimated Glomerular Filt Rate > 60 mL/min (>60); Glucose 174 mg/dL (80-110); HEMOLYSIS < 15 (0-50); Potassium 4.8 mmol/L (3.4-5.1); Sodium 138 mmol/L (137-145)
== END ==
PROVIDERS: PCP Registered Nurse; Referring Provider Orthopaedic Surgery; Visit Provider Orthopaedic Surgery
DX: Z01.812 Encounter for preprocedural laboratory examination (principal)
CPT/HCPCS: 36415; 80048; 85025

== ENCOUNTER 2022-10-14 10:40 | Day surgery (SDC) | payer OTHER, SELFPAY ==
[2018-08-30 19:11] VITALS: BMI 29.6
[2022-09-25 07:18] VITALS: BMI 26.9
[2022-10-14] VITALS (14 sets, daily range): BP systolic 95–162; BP diastolic 51–99; PULSE 63–82; RESP 12–18; TEMP 36.2–37.4; O2SAT 95–100; BMI 26.9
--- NOTE | 2022-10-14 06:00 | DI.RAD.S_ITS ---
PROCEDURE: XR KNEE LT 1TO2V INDICATIONS: total left knee TECHNIQUE: 2 view(s) of the knee acquired. COMPARISON: None. FINDINGS: Bones: Patient is status post knee joint arthroplasty. Hardware components are in expected positions. Visualized bony structures are intact. Soft tissues: Overlying postoperative changes are noted. IMPRESSION: Postop changes from left total knee arthroplasty with anatomic left knee alignment. Dictated by: Alfonzo Montemayor M.D. on 10/14/2022 at 14:55 Approved by: Alfonzo Montemayor M.D. on 10/14/2022 at 14:55
[2022-10-14 11:12] LABS: COVID19 -Nasal RAPID Negative (Negative)
[2022-10-14] MEDS: LACTATED RINGERS 1,000 ML 42 ML IV (11:15)
[2022-10-14] MEDS: CELECOXIB 200 MG CAPSULE PO (11:16)
[2022-10-14] MEDS: ACETAMINOPHEN 325 MG TABLET 975 MG PO (11:16)
--- NOTE | 2022-10-14 12:00 | PM.PREOP ---
Pre-operative Note COVID-19 COVID-19 status: Negative Result date/Date tested (Pos, Neg/Pending): 10/14/22 Interval Note History & Physical reviewed/Exam performed by Physician: Yes Changes to H&P: No
[2022-10-14] MEDS: CEFAZOLIN 2 GM/100 ML PREMIX 100 ML IV ×2 (12:45→21:19)
[2022-10-14] MEDS: TRANEXAMIC ACID 1,000 MG VIAL 2000 MG INJ (13:00)
--- NOTE | 2022-10-14 13:01 | SUR.OPER ---
Supine on padded OR bed. Pillow under head, arms secured on padded armboards <90 degree abduction. Safety belt across torso. Non-operative leg secured with tape over blanket over lower leg. Operative leg secured in DeMayo/Uri/Nathe positioner. Foam padded brace at thigh of operative leg.
[2022-10-14] MEDS: BUPIVACAINE LIPOSOME 266 MG/20 ML VIAL INJ (13:09)
[2022-10-14] MEDS: BUPIVACAINE 0.25% (PF) 60 ML, EPINEPHrine 0.3 MG INJ (13:09)
[2022-10-14] MEDS: MORPHINE 4 MG/ML INJ SUBCUT (13:11)
--- NOTE | 2022-10-14 14:28 | P.OP_ITS ---
Operative Date/Time/Diagnoses Date of procedure: 10/14/22 Time of procedure: 14:28 Pre-op diagnosis: Left knee osteoarthritis Post-op diagnosis: same Procedure & Clinicians Procedure: Left total knee replacement Same procedure as scheduled: Yes Indications: The patient has had progressively worsening left knee pain with radiographic changes consistent with arthritis. Non-operative management has failed and the patient has requested total knee replacement. The risks, benefits and alternatives to surgery were discussed with the patient prior to proceeding. Risks discussed included, but were not limited to, failure to relieve pain, stiffness, infection, nerve damage, deep venous thrombosis, pulmonary embolism, stroke, coma, heart attack, permanent paralysis and , as well as the potential need for eventual revision of the prosthetic. Surgeon: Rashad Diamond Medical Terminologist: Le Santana Click Yes if Unassisted: No Anesthesia Type: General, Spinal and Local Operative Notes Findings: Severe patellofemoral with moderate medial osteoarthritis. Relative preservation of the lateral compartment. Closure Type: primary Specimen(s): none sent Prosthetic devices, grafts, tissues, transplants, or devices: Implants used in this procedure were manufactured by the [employer] and [employer] and included the BCS II Journey total knee replacement with a size 5 Oxinium left femur, a size 5 left non porous tibial base plate, a 9 mm cross- linked polyethylene insert and a 35 mm oval Rosa Maria II patella. Applied: implant(s) Estimated Blood Loss (mL): 25 Blood products transfused: none Tourniquet time (min): 45 Procedure in detail: The patient was seen in the pre-operative area, where the left knee was identified as the operative site and this was marked with my initials. The patient received pre-operative antibiotics, and was taken to the operating room and placed on the operative table in the supine position. After satisfactory anesthesia, a multimedia educational specialist out was performed. The left leg was encircled with a tourniquet about the proximal thigh, and the leg was prepared from the toes to the tourniquet with ChloroPrep in the usual fashion and draped through sterile drapes. The leg was elevated and exsanguinated with Eschmark bandage and the tourniquet inflated to 250 mmHg pressure. The knee was approached through an approximately 18 cm incision centered over the patella and carried into the knee through a medial parapatellar arthrotomy. The anterior osteophytes and soft tissues were removed. The rotational landmarks of [place]'s line and the transepicondylar axis were marked on the femur with electrocautery, and intramedullary guide holes for the femur and tibia were created. The distal femoral cut was made in 6 degrees of valgus using the intramedullary guide at +1 cut setting due to a mild flexion contracture. The proximal tibial cut was then made using the intramedullary guide, taking 9 mm of bone off the less involved side. The extension gap was checked and the rotation of the femoral component confirmed with the gap balancing blocks. The anterior, posterior and chamfer cuts were then made. The posterior osteophytes and soft tissues were then removed. The posterior capsule was injected with part of a mixture of 60 ml 0.25% Marcaine mixed with 20 ml Exparel and 4 mg of morphine for post-operative pain control. The remainder of this mixture was injected into the capsule and subcutaneous tissues during cement curing. The tibia was prepared with the rotation set by an extra medullary guide. Trial tibial and femoral components were then placed and the intercondylar notch cut through the femoral trial. Range of motion was 135 degrees, with good stability throughout the range. The patella was then cut to accommodate the patellar prosthetic. There was no need for a lateral release. The trials were then removed, and the femoral hole plugged with a bone plug. The bone was prepared with pulsatile lavage, and dried with a sponge. Cement was applied and the final prosthetics placed. Excess cement was removed during and after cement curing. After confirming there was no extruded cement posteriorly, the final tibial insert was placed. The knee was copiously irrigated and the tourniquet deflated. Hemostasis was obtained. The capsule was closed with interrupted # 2 polyester sutures. The subcutaneous layer was closed with 3-0 Vicryl, and the skin with a running 3-0 V-Lock suture and Dermabond. An Aquacel Ag dressing was applied and the patient was taken to recovery having tolerated the procedure well. Complications: none Post-operative Condition: stable Disposition: PACU Plan for aftercare: The patient will be maintained on a standard total knee replacement protocol with weight bearing as tolerated. The patient will receive aspirin and sequential compression devices for DVT prophylaxis. The patient will be discharged home when safe for the home environment.
[2022-10-14] MEDS: ONDANSETRON 4 MG/2 ML INJ IV ×2 (14:51→21:21)
[2022-10-14] MEDS: OXYCODONE/ACETAMINOPHEN 5/325 TABLET 1 TAB PO (14:52)
--- NOTE | 2022-10-14 14:58 | SUR.PHASEI ---
Pt transferred to room 229 by Mian Barrera in bed with 1 belongings bag and glasses.
[2022-10-14] MEDS: ACETAMINOPHEN 325 MG TABLET 650 MG PO ×2 (15:19→21:17)
[2022-10-14] MEDS: LACTATED RINGERS 1,000 ML 100 ML IV (15:19)
[2022-10-14] MEDS: OXYCODONE IR 5 MG TABLET PO (15:19)
[2022-10-14] MEDS: HYDROMORPHONE 0.5 MG INJ IV (16:43)
[2022-10-14 16:55] LABS: MRSA (Nasal) PCR Not Detected (Not Detect)
[2022-10-14] MEDS: INSULIN LISPRO 100 UNIT/ML 3ML VIAL SUBCUT (17:10)
--- NOTE | 2022-10-14 17:46 | PC.NURSE ---
Admit Note Patient to room 229 at 1515 from PACU. Alert and oriented x4, SpO2 97%. Reports pain 7/10 to left knee, medicated with oxycodone and then with Dilaudid IV (See emar). Aquacel dressing C/D/I with JEANNINE wrap in place. Strong pulses bilaterally. Minimal numbness to feet, able to move BLEs. Oriented to room and to call light/bed/tv controls. Call light within reach. Belongings in room, glasses, cell phone, electronic tablet, bucket pusher, and clothing. Declines to lock up valuables.
[2022-10-14] MEDS: OXYCODONE IR 10 MG TABLET PO ×2 (18:28→21:18)
[2022-10-14] MEDS: AMITRIPTYLINE 10 MG TABLET PO (21:17)
[2022-10-14] MEDS: ATORVASTATIN 20 MG TABLET 10 MG PO (21:18)
[2022-10-14] MEDS: METFORMIN HCL 500 MG TABLET PO (21:18)
[2022-10-14] MEDS: DOCUSATE 100 MG CAPSULE PO (21:18)
[2022-10-14] MEDS: ASPIRIN EC 81 MG TABLET PO (21:18)
[2022-10-14] MEDS: NAPROXEN 250 MG TABLET 500 MG PO (21:18)
[2022-10-15] VITALS: BP 145/74; PULSE 77; RESP 16; TEMP 36.2; O2SAT 97
[2022-10-15] MEDS: OXYCODONE IR 10 MG TABLET PO ×5 (00:36→12:06)
[2022-10-15] MEDS: LACTATED RINGERS 1,000 ML 100 ML IV (00:39)
[2022-10-15] MEDS: ACETAMINOPHEN 325 MG TABLET 650 MG PO ×2 (03:14→08:24)
[2022-10-15 04:00] VITALS: BP 127/58; PULSE 87; RESP 18; TEMP 36.6; O2SAT 96
[2022-10-15 05:09] LABS: Hemoglobin 11.6 g/dL (12.0-16.0)
[2022-10-15] MEDS: CEFAZOLIN 2 GM/100 ML PREMIX 100 ML IV (05:57)
[2022-10-15] MEDS: INSULIN LISPRO 100 UNIT/ML 3ML VIAL SUBCUT ×2 (07:49→12:08)
[2022-10-15] MEDS: METFORMIN HCL 500 MG TABLET PO (08:24)
[2022-10-15] MEDS: DOCUSATE 100 MG CAPSULE PO (08:24)
[2022-10-15] MEDS: ASPIRIN EC 81 MG TABLET PO (08:25)
[2022-10-15 08:55] VITALS: BP 131/69; PULSE 77; RESP 18; TEMP 36.8; O2SAT 98
[2022-10-15] MEDS: NAPROXEN 250 MG TABLET 500 MG PO (09:17)
--- NOTE | 2022-10-15 09:18 | P.DS_ITS ---
History of Present Illness History of Present Illness Date Patient Seen: 10/15/22 Time Patient Seen: 09:00 Chief complaint: Left TKA 10/14 Narrative: The history and physical is contained in the chart previously completed note. Please refer to that note for this information. Discharge Providers Provider Date of admission: October 14, 2022 Discharge Date: 10/15/22 Primary care physician: CHAD Faith Consults: 10/14/22 15:10 Consult to Discharge Planning Routine Comment: Consult to Physical Therapy Evaluate & Treat Comment: Physician Instructions: postop TKA protocol Discharge provider: Rashad Diamond MD Summary Hospital Course Discharge Diagnosis: 1. Left knee osteoarthritis 2. Post hemorrhagic anemia Hospital Course: The patient was admitted the hospital and taken directly to the operating room o n October 14, 2022 where she underwent a left total knee replacement without complications. She had reasonable pain control overnight and when visited 1st thing in the morning on October 15 was ready for discharge. Status at Discharge Cognitive/behavioral status at discharge: at baseline, oriented Functional status at discharge: uses cane/walker Overall status at discharge: patient is progressing back to baseline Time Spent with Patient Time spent: Less than 30 minutes Exam Vital Signs (past 8 hours): - 10/15/22 04:00 10/15/22 07:00 10/15/22 08:55 Temperature 97.8 F 98.3 F Pulse Rate 87 77 Respiratory Rate 18 18 Blood Pressure 127/58 L 131/69 Pulse Oximetry 96 98 Oxygen Delivery Method Room Air Oxygen Flow Rate 0 Oxygen Delivery Method Room Air Oxygen Flow Rate 0 Narrative Exam Narrative: Left knee wound is dressed with no drainage on the bandage. Calf is soft. Light touch and motion are intact in the left lower extremity. Objective Labs 10/15/22 04:08 Labs: Laboratory Results - last 24 hr 10/14/22 10/14/22 10/15/22 10:57 15:35 04:08 Hgb 11.6 L Hct 34.0 L Nasal Screen MRSA (PCR) Not detected SARS-CoV-2 (PCR) Negative [facility] Medical History (Updated 09/24/22 @ 10:34 by Cristiane Jesus RN) Bilateral primary osteoarthritis of hip GERD (gastroesophageal reflux disease) History of COVID-19 (10/2020) Hyperlipidemia Insomnia Rosacea Shingles Type 2 diabetes mellitus Surgical History (Updated 09/24/22 @ 11:06 by Cristiane Jesus RN) History of bunionectomy of both great toes History of carpal tunnel release History of orthopedic surgery (08/2022) History of total left hip replacement (08/30/18) Hx of nasal septoplasty S/P trigger finger release (~04/2018) Status post laparoscopic Crista fundoplication Social History household members: family Smoking Status: Never smoker alcohol intake: current Discharge Assessment & Plan Assessment and Plan Assessment: Stable postop day 1 status post left total knee replacement. Ready for discharge. Plan of Treatment: Discharge to home. Follow up in my office in 10-14 days. Discharge pre scriptions have been sent in for oxycodone. She is been instructed in the use of her diclofenac and Tylenol for additional pain control and the use of low- dose aspirin for DVT prophylaxis. Discharge Plan Discharge Plan Patient Disposition: Home Discharge orders & Medications Discharge Orders: Discharge (Order); Ordered 10/15/22 Ordered By: Rashad Diamond Prescriptions: New acetaminophen 325 mg Tablet 650 mg PO Q6H Qty: 250 0RF aspirin 81 mg Tablet,Delayed Release (Dr/Ec) 81 mg PO BID Qty: 84 0RF oxycodone 5 mg Tablet 5 mg PO Q4H PRN (Reason: Pain, Moderate (4-6)) Qty: 40 0RF Continued metformin 500 mg Tablet 500 mg PO BID atorvastatin 10 mg Tablet 10 mg PO BEDTIME diclofenac sodium 75 mg Tablet,Delayed Release (Dr/Ec) 75 mg PO BID amitriptyline 10 mg Tablet 10 mg PO BEDTIME Discontinued acetaminophen 500 mg Tablet 1,000 mg PO DAILY PRN (Reason: Pain) Follow up/Referrals: Krupa Hugo FNP-C [Primary Care Provider] - Rashad Diamond MD [Physician] - As previously scheduled (Follow up with Carline Berman PA-C, on 10/30/2022 @ 2:30 pm at [facility] [facility] office in [place].) Diet/Activity/Treatments Diet: Diet as Tolerated and Carb-consistent/Diabetic Activity: Walk frequently! You may bear weight as tolerated on your left leg. Cold/Heat Therapy: Ice to knee as needed for pain. Skin/Wound/Dressing Care Report to your healthcare provider any signs of infection, such as:: chills, fever, night sweats, increased pain, unusual drainage and unusual redness Dressing: May remove JEANNINE wrap and shower on 10/17/2022. Leave Aquacel dressing in place until follow up in office. No bathing or otherwise soaking incision. Call the office if dressing becomes saturated inside. Visit Report/Discharge Packet Instructions: DI for Knee Replacement Stand Alone Forms: Patient Portal/API, Surgery Discharge Discharge Data Primary Care Provider: Krupa Hugo Attending Provider: Rashad Diamond Quality VTE Deep Vein Thrombosis/Pulmonary Embolism Present on Admission: No
--- NOTE | 2022-10-15 10:41 | CM.DANOTE ---
DCP: Case received, EMR reviewed and met with patient. Introduced self and role. Was able to obtain information regarding patient's baseline activity status prior to her surgery. DCP assessment completed with information currently available. Patient is a 72 year old female who admitted yesterday morning to the care of the orthopedic team. PCP: Dr. Hugo. Payer: confirmed; [facility] Ad[facility]. Patient came to the hospital via private vehicle for a surgical procedure. Patient had a left total knee replacement. Patient has history of left knee osteoarthritis. Met with patient in her room. She was sitting up in bed, alert and oriented, pleasant. Patient resides in [place], her grand daughter lives with her, and her son is staying with her post surgery. Patient is independent at his baseline, uses no DME at his baseline. She indicated, she has plenty of assistance and support for when she goes home. She will be doing outpatient P.T. P: Patient has discharge orders for home today, but will work with P.T. prior. Blanca Hawk RN/Ledge Man Discharge Planning/Care Management CM Discharge Assessment Start: 10/15/22 09:28 Freq: Status: Active Protocol: Document 10/15/22 09:28 (Rec: 10/15/22 09:32 [id number]) Discharge Planning Assessment Assigned Blacktop Paver Operator Blanca Hawk RN/Ledge Man Advance Directives? Yes Advance Directives on File No History Provided By Patient,Medical Record Prior Living Arrangements House Household Members family Type of transporation used prior to Drives own vehicle admit Independent with ADL's Yes Is patient alert and oriented? Yes Caregiver for Another No Patient/Family Preference OP PT Therapy Barriers to Discharge No Comment Patent has family, son staying with her, and grandaughters. Discharge Plan Home Referrals Initiated None needed Whiteboard Updated in Patient Room with Yes name and ext. # of Blacktop Paver Operator Review Status In Process Next Review Type Continued Stay Review Pre-Anesthesia Assessment Start: 09/24/22 10:23 Freq: Status: Complete Protocol: Document 09/25/22 07:18 CAB (Rec: 09/24/22 11:17 CAB [id number]) Pre-Anesthesia Assessment Patient Information Reviewed Via Phone Assessment Assessment Completed With Patient Diagnostic Results BMP/CMP,CBC,EKG Comment Outside EKG scanned, labs @ 09/24/22 Primary Care Provider Krupa Hugo Seen Specialist in Last 12 Months Yes Specialist Seen Filling Technician,Orthopedist, Senior Android Software Engineer Primary Language Italian Preferred Language Italian Height 5 ft 7 in Weight 172 lb Body Mass Index (BMI) 26.9 Hearing Ability Normal Visual Impairment No Limitations Visual Assist None Dentition Type Teeth, Natural Present Barriers to Learning None Other Aids No Hx Anesthesia Reactions No Hx Family Anesthesia Reaction No Hx Malignant Hyperthermia No Hx Blood Transfusions No Anesthesia Review Requested No Roof Panel Hanger No alcohol intake current alcohol intake frequency 0-2 drinks per day Smoking Status Never smoker Substance Use Type does not use Pain Present Pain Reported Musculoskeletal Symptoms Difficulty Walking,Joint Pain History of Falling (Recent or History of No ) Patient is completely paralyzed or No completely immobile Mental Status Oriented to own ability Is patient on oxygen? No Does patient have TEIXEIRA/SOB No Hx Sleep Apnea No CPAP/BIPAP use not prescribed Currently Taking a Beta Brandi No Can You Climb a Flight of Stairs Without Yes SOB Hx Chest Pain No Hx SOB No Hx Syncope or Dizziness No Anti-Coagulant Therapy No Has a Senior Financial Reporting Analyst No Cardiac Testing No Hx Pacemaker/ICD No Pacemaker Rep Required? No Comment Walks daily, works out at gym Diet Type At Home Regular Dysphagia No Gastrointestinal Symptoms Reflux Urinary Catheter Present No Hx Urinary Self Catheterization No Diabetes Yes: Pt checks BS 5x/week HgbA1C 5.9 Comment Approx 3 months ago per pt Patient No Lactating No Hx Drug Resistant Organism No Presence of External or Internal Medical Yes: Left hip prosthesis, Devices great toe(gustavo) Have you had any close contact with No someone diagnosed with COVID-19? Received a COVID vaccine? Yes Received all doses? Yes Marital Status / Lives With family Current Living Arrangements House Comment Granddaughter lives with patient Number of Floors (Floors) Two Floors Support System Child/Children Does the Patient Have Assistance After Yes: Son and granddaughter Surgery will assist w/care @ [place] Patient Discharge Plan Description Return Home Comment Pt advised possible same day surgery per pt Feels Safe in Current Environment Yes Been Physically Hurt or Threatened By a No Person in Current Environment Do you have thoughts of harming yourself None or others? Are you currently considering suicide? No Do you have a plan to hurt yourself or No Plan others? Do You Have Any Spiritual Beliefs That No May Affect Your HC Choices? Do You Have Any Cultural Practices That No May Affect Your HC Choices? Comment Gennaro Who Can We Speak to About Patient's Care Family, friends Identifying Code for Release of Patient Declines to issue Information Health Care Proxy/Next of Kin Mesfin Batres (son) Health Care Proxy Emergency Contact Name Mesfin Batres (son) Emergency Contact Advance Directives? Yes Advance Directives on File No Requested Patient Bring Advanced Yes Directives DOS Power of Oracle Applications Developer Yes Power of Oracle Applications Developer Name Mesfin reynoso) Power of Oracle Applications Developer PAC Instructions Do not shave/clip surgical site,Durable medical equipment ,Medications to take/avoid, Nasal antibiotic,No ETOH/ petroleum product on skin DOS, NPO,Post-op transportation,Pre -surgical wash,Sensory aids, Sturdy shoes/comfortable clothes,Do not bring valuables and remove jewelry
--- NOTE | 2022-10-15 10:57 | PT.IIE ---
Current Diagnoses Unilateral primary osteoarthritis, left knee (10/14/22) Surgery Performed Operation Date: 10/14/22 12:30 Actual Procedures p Total Knee Arthroplasty(Left) - Rashad Diamond MD Surgical History (Last Updated 09/24/22 @ 11:06 by Cristiane Jesus, RN) History of bunionectomy of both great toes History of carpal tunnel release History of orthopedic surgery (08/2022) History of total left hip replacement (08/30/18) Hx of nasal septoplasty S/P trigger finger release (~04/2018) Status post laparoscopic Crista fundoplication Medical History (Last Updated 09/24/22 @ 10:34 by Cristiane Jesus, SUKHWINDER) Bilateral primary osteoarthritis of hip GERD (gastroesophageal reflux disease) History of COVID-19 (10/2020) Hyperlipidemia Insomnia Rosacea Shingles Type 2 diabetes mellitus Physical Therapy Inpatient Evaluation/Re-Eval M1 PT/OT-IP Prior Functional Status Start: 10/15/22 10:43 Freq: NEEDED Status: Active Protocol: Document 10/15/22 10:43 TH (Rec: 10/15/22 10:56 TH [id number]) Medical Review Prior Functional Status Medical History Reviewed Yes Mobility and Gait IND without AD Activities of Daily Living and IADL's IND Prior Functional Level (Other details) GYm workouts Social History Household Members family Living Arrangements House Number of Floors (Floors) Two Floors Number of Stairs To Enter/Railing? none to front door/ has electric chair to bring up/ down 1 flibght stairs in home. Home Environment Walk in Shower Home Equipment Four Wheel Walker,Raised Toilet Seat w/Armrests,Shower Seat without Backrest M2 PT-IP Current Condition Start: 10/15/22 10:43 Freq: NEEDED Status: Active Protocol: Document 10/15/22 10:43 TH (Rec: 10/15/22 10:56 TH [id number]) Physical Therapy Current Condition Current Condition Evaluation Date 10/15/22 Treatment Diagnosis L TKA M3 PT-IP Subjective Start: 10/15/22 10:43 Freq: NEEDED Status: Active Protocol: Document 10/15/22 10:43 TH (Rec: 10/15/22 10:56 TH [id number]) Subjective Physical Therapy Visit Type Type Initial Evaluation Visit Start Time 10:00 Visit Stop Time 10:45 Total Visit Minutes 45 Physical Therapy Visit Comments Patient Comments Pt in bed , states she has been up to the bathroom with nursing. Therapy Pain Assessment Pain When Pain Assessed no c/o p Pain Present Pain Present Denied Pain Location left knee Intensity 0 Scale Used Numeric (0 - 10) M4 PT-IP Mobility and Gait Start: 10/15/22 10:43 Freq: NEEDED Status: Active Protocol: Document 10/15/22 10:43 TH (Rec: 10/15/22 10:56 TH [id number]) PT-Bed Mobility Assessment Rolling Level of Assist Independent Supine to Sit Supine to Sit Independent Scooting Scooting to Edge of Bed Independent PT-Transfer Assessment Sit to and From Stand Sit to and from Stand Independent Equipment Transfer Assistive Device Front Wheeled Walker Transfer Ability Level of Assist Independent Gait Assessment Gait Gait Assistance Required: Independent Distance (Feet) 75 Able to Maintain Weight Bearing Status Yes During Gait Assistive Devices Assistive Device Front Wheeled Walker Gait Deviations General Gait Pattern Antalgic Factors Limiting Gait Function Factors Limiting Gait Function Limited Range of Motion Comments Gait Comments Instricted pt in heel strike and knee flexion with swing through Left Stair Climbing Assessment Technique/Endurance Number of Steps Climbed 0 Query Text: Comments Stair Climbing Comments NA PT-Balance Assessment Sitting Balance and Reactions Static Sitting Balance Ability Normal Dynamic Sitting Balance Ability Normal Standing Balance and Reactions Static Standing Balance Ability Normal Dynamic Standing Balance Ability Normal M5 PT-IP Objective Assessments Start: 10/15/22 10:43 Freq: NEEDED Status: Active Protocol: Document 10/15/22 10:43 TH (Rec: 10/15/22 10:56 TH [id number]) Orientation Orientation/Cognition Level of Alertness Alert Orientation Name,Place,Situation Language Function Ability No Deficits Noted Safety Awareness Understands Safety Issues Gross Range of Motion Upper Extremity ROM Assessment Within Functional Limits Lower Extremity ROM Assessment Left Impaired Strength Upper Extremity Strength Assessment Within Functional Limits Lower Extremity Strength Assessment Left Impaired Comments Strength Comments AROM Flex: 30 EXT: -13 M6 PT-IP Treatment Start: 10/15/22 10:43 Freq: NEEDED Status: Active Protocol: Document 10/15/22 10:43 TH (Rec: 10/15/22 10:56 TH [id number]) Physical Therapy Treatment Exercises Exercises Ankle Pumps,Quad Sets,Heel Slides Education Education Provided Safety Other Treatments Other Treatment Performed TKA packet provided M7 PT-IP Assessment and Plan Start: 10/15/22 10:43 Freq: NEEDED Status: Active Protocol: Document 10/15/22 10:43 TH (Rec: 10/15/22 10:56 TH [id number]) PT Summary Assessment and Plan Potential Rehabilitation Potential Excellent Status of Condition at Evaluation Stable Summary Impairments Strength,Activity Tolerance Assessment Summary Pt presents with decreased left knee rom/strength post op . Pt will benefit from further PT to improve left LE strength/rom. Pt is safe for dc home with assist. Pt has all appropriate AD at home. Goals Bed Mobility Goal Independent Transfer Goal Independent Gait Goal Independent Gait Distance 100 Days to Meet Goals 4 Frequency of Treatment Frequency Of Treatment Twice a Day Treatment Plan Physical Therapy Treatment Plan Bed Mobility Training,Transfer Training,Gait Training, Therapeutic Exercise,Post Op Education,Discharge Planning Other Recommendations and Next Treatment NO STAIRS AT HOME Pt WILL NEED Focus TO NAVIGATE Recommendations To Nursing Amount of Assist Needed Standby Assistance Discharge Recommendations PT Discharge Recommendations Home with Assistance Other Discharge Recommendations Pt will family to assist at home. Transportation Needs at Discharge Private Vehicle
== END 2022-10-15 12:30 | disposition home or self-care (01) ==
LOC: OR 10:42 → AC 10:42 → ICU 11:33
PROVIDERS: PCP Registered Nurse; Referring Provider Orthopaedic Surgery; Visit Provider Orthopaedic Surgery
PROC: 0SRD0JZ Replacement of Left Knee Joint with Synthetic Substitute, Open Approach (ICD-10-PCS; CPT 27447; principal; 2022-10-14 12:30)
DX: M17.12 Unilateral primary osteoarthritis, left knee (principal); E11.9 Type 2 diabetes mellitus without complications; Z79.84 Long term (current) use of oral hypoglycemic drugs
CPT/HCPCS: 27447; 36415; 73560; 82962; 85014; 85018; 87635; 87797; 97110; 97161; C1776; C9290; J0171; J0690; J1100; J1170; J1815; J2250; J2270; J2405; J2704; J3010

== ENCOUNTER → 2023-04-20 13:56 | Outpatient (CLI) | payer OTHER, SELFPAY ==
[2022-10-14 10:44] VITALS: BMI 26.9
[2023-04-20 14:54] LABS: Add Manual Diff / Slide Review NO; Basophils Absolute Auto 100 /uL (0-100); Basophils Percent Auto 0.9 % (0-2); Eosinophils Absolute Auto 100 /uL (0-450); Eosinophils Percent Auto 1.6 % (2-4); Hematocrit 37.1 % (36-46); Hemoglobin 12.7 g/dL (12.0-16.0); Lymphocytes Absolute Auto 2000 /uL (1100-4500); Lymphocytes Percent Auto 30.9 % (25-40); Mean Corpuscular HGB Conc 34.3 % (30-36); Mean Corpuscular Hemoglobin 32.6 PG (26-34); Monocytes Absolute Auto 400 /uL (0-900); Monocytes Percent Auto 6.7 % (3-14); Neutrophils Absolute Auto 4000 /uL (1500-7000); Neutrophils Percent Auto 59.9 % (50-75); Platelet Count 279 X10^3/uL (150-400); White Blood Cell Count 6.6 X10^3/uL (4.5-11.0)
[2023-04-20 15:11] LABS: Hemoglobin A1C% w Est Avg Glu 5.7 % (4.0-6.0)
[2023-04-20 15:12] LABS: BUN Creatinine Ratio 30.3 (6-22); Blood Urea Nitrogen 20 mg/dL (7-17); Calcium 10.8 mg/dL (8.4-10.2); Carbon Dioxide 29 mmol/L (22-32); Chloride 104 mmol/L (98-107); Estimated Glomerular Filt Rate > 60 mL/min (>60); Glucose 100 mg/dL (80-110); HEMOLYSIS < 15 (0-50); Potassium 4.4 mmol/L (3.4-5.1); Sodium 138 mmol/L (137-145)
[2023-04-20 15:28] LABS: Appearance Urine UA CLEAR; Bilirubin Urine UA NEGATIVE (NEGATIVE); Color Urine UA YELLOW; Glucose Urine UA NEGATIVE (Negative); Ketones Urine UA TRACE (NEGATIVE); Leukocyte Esterase Urine UA NEGATIVE (NEGATIVE); Nitrite Urine UA NEGATIVE (Negative); Occult Blood Urine UA NEGATIVE (Negative); Protein Urine UA NEGATIVE (Negative); Specific Gravity Urine UA >=1.030 (1.000-1.035)
[2023-04-20 15:58] LABS: Bacteria Urine Occasional (0-1); Culture Indicated Urine Cult Not Indicated; RBC Urine None Seen (0-5/HPF); Squamous Epithelial Cell Urine 1-5 /HPF (0-5/HPF); WBC Urine 0-1/HPF (0-5/HPF)
== END ==
PROVIDERS: PCP Registered Nurse; Referring Provider Orthopaedic Surgery; Visit Provider Orthopaedic Surgery
DX: Z01.818 Encounter for other preprocedural examination (principal); R73.9 Hyperglycemia, unspecified; Z01.812 Encounter for preprocedural laboratory examination; N39.0 Urinary tract infection, site not specified
CPT/HCPCS: 36415; 80048; 81001; 83036; 85025; 93005; 93010

== ENCOUNTER 2023-08-06 21:14 | Observation (INO) | payer OTHER, SELFPAY ==
[2022-10-14 10:44] VITALS: BMI 26.9
[2023-08-06 22:00] VITALS: BP 166/76; PULSE 78; RESP 16; TEMP 36.1; O2SAT 99
[2023-08-06 23:31] LABS: COVID19 -Nasal RAPID POSITIVE (Negative)
[2023-08-07] VITALS (9 sets, daily range): BP systolic 103–136; BP diastolic 50–73; PULSE 69–84; RESP 11–18; TEMP 36.1–36.6; O2SAT 94–100; BMI 25.4
[2023-08-07] MEDS: LACTATED RINGERS 1,000 ML 75 ML IV
--- NOTE | 2023-08-07 | DI.RAD.S_ITS ---
PROCEDURE: XR HIP W PEL IF DONE LT 2V INDICATIONS: POST REDUCTION LT HIP TECHNIQUE: 2 view(s) of the hip acquired. COMPARISON: [facility], [facility], XR HIP W PEL IF DONE LT 2V, 08/30/2018, 16:50. Findings and impression: Intra procedural images were obtained of the left hip, with arthroplasty in place. Please see procedure note for full details. Dictated by: Afshin Fuentes M.D. on 08/07/2023 at 19:57 Approved by: Afshin Fuentes M.D. on 08/07/2023 at 19:58
--- NOTE | 2023-08-07 01:42 | PC.ADMIT ---
Addendum entered by Melanie Desai R.N. 08/07/23 01:51: Correction: BP was 166/76 Original Note: [address] Admission Note: The patient,Jazmin Batres,73 y/o, was given written information regarding hospital policies, unit procedures and contact persons. Patient's smoking status: Never smoker. Vital Signs - 8 hr 08/06/23 23:00 Oxygen Delivery Method Room Air Patient admitted at 2230 to room 217 per stretcher as direct admit from [facility]. She is alert and oriented. Breath sounds CTA with RA sat of 99%. Does report she was positive for covid 9 days ago and nasal swab sent still positive for covid so is on covid isolation. HRR w/elevated BP of 156/76. Denied nausea although did experience some brief nausea when eating but no emesis. Is now NPO since 0000 except for meds in anticipation of surgery at 0800 for closed reduction of left hip. Denied dysuia and Purewick placed as currently on bedrest. Left LE is internally rotated and shortened. Pain level was at 3/10 and educated on pain control; verbalized understanding. Fall risk assessment done by SUKHWINDER Joel indicated low fall risk. Oriented to call light and bed controls.
[2023-08-07] MEDS: OXYCODONE IR 10 MG TABLET PO ×2 (02:39→05:44)
[2023-08-07] MEDS: ACETAMINOPHEN 325 MG TABLET 650 MG PO ×2 (05:44→10:13)
[2023-08-07] MEDS: LACTATED RINGERS 1,000 ML 42 ML IV (08:00)
--- NOTE | 2023-08-07 08:00 | PM.HP.1 ---
History of Present Illness History of Present Illness Date Patient Seen: 08/07/23 Time Patient Seen: 08:00 Date of Onset of Symptoms: 08/06/23 Chief complaint: reduce pt injury lt hip dislocation Narrative: This is a 73-year-old female with a history of a left total hip arthroplasty about 5 years ago. She has also had a recent right total knee arthroplasty and tested positive for COVID about 10 days ago. She has been having some increased problems with right hip pain. She was twisted in a funny position leaning over and kind of slipped and felt pop and pain in her left hip. She noted the acute onset of left pain. She has not had previous problems with instability. Her COVID symptoms have been reasonably mild recently she had no just notes increased fatigue. She was not having prior left hip pain. 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/30/18) S/P trigger finger release (~04/2018) History of carpal tunnel release History of bunionectomy of both great toes Status post laparoscopic Crista fundoplication Hx of nasal septoplasty Social History household members: family Smoking Status: Never smoker alcohol intake: current Meds Home Medications and Allergies Home Medications Medication Instructions Recorded Confirmed Type atorvastatin 10 mg tablet 10 mg PO BEDTIME 08/19/18 08/07/23 History diclofenac sodium 75 mg 75 mg PO BID 08/19/18 08/07/23 History tablet,delayed release metformin 500 mg tablet 500 mg PO BID 08/19/18 08/07/23 History amitriptyline 10 mg tablet 10 mg PO BEDTIME 09/24/22 08/07/23 History acetaminophen 325 mg tablet 650 mg (2 x 325 mg) PO Q6H #250 10/15/22 08/07/23 Rx tabs oxycodone 5 mg tablet 5 mg PO Q4H PRN Pain, Moderate 10/15/22 08/07/23 Rx (4-6) #40 tabs Allergies Allergy/AdvReac Type Severity Reaction Status Date / Time Penicillins Allergy Mild Hives Verified 10/14/22 10:48 Review of Systems Review of Systems Narrative: Increased fatigue, mild cough, no chest pain, she has not lightheaded or having any increased cardiac symptoms prior to her slip and left hip pain. Exam Vital Signs (past 8 hours): Oxygen Delivery Method Room Air Oxygen Flow Rate 0 Narrative Exam Narrative: HEENT is benign lungs are clear cor regular rate and rhythm abdomen soft and benign examination of her left hip shows a shortened left hip she is able to fire toe flexors and extensors her incisions well healed. Calves are soft bilaterally. Objective Labs Labs: Laboratory Results - last 24 hr 08/06/23 23:13 SARS-CoV-2 (PCR) Positive H Assessment & Plan Assessment and plan (1) Hip dislocation, left: Status: Acute (2) COVID: Status: Acute Plan I have recommended a closed reduction of her left hip. She was seen in the emergency room with [facility]. They attempted closed reduction in the emergency room and were unsuccessful at a closed reduction. Unfortunately she tested positive for COVID again here she has been positive now for about 10 days. We are going to take her to the operating room use COVID precautions for anesthesia and do a closed reduction. Low likelihood of possible open reduction in the future if closed reduction is unsuccessful was discussed. Options risks benefits and complications discussed in detail. She understands and consents to surgery.
--- NOTE | 2023-08-07 08:29 | SUR.OPER ---
Supine on padded OR bed, head on pillow, arms secured on padded arm boards at <90 degrees abduction, legs uncrossed.
--- NOTE | 2023-08-07 08:30 | P.OP_ITS ---
Operative Date/Time/Diagnoses Date of procedure: 08/07/23 Time of procedure: 08:10 Pre-op diagnosis: Left hip dislocation, history of left total hip arthroplasty Post-op diagnosis: same Procedure & Clinicians Procedure: Closed reduction left hip Same procedure as scheduled: Yes Indications: This is a 73-year-old female with a history of a left total hip arthroplasty about 5 years ago. She was leaning over twisted in a funny position slipped and felt a pop in her left hip. She has not had problems with recurrent instability. She does have a history of a recent right total knee arthroplasty and is having some increased symptoms in her right hip recently. She was taken to an outside hospital and underwent an attempted closed reduction they were unable to reduce her hip in the emergency room and she was transferred to [facility] for care. X-rays showed a left hip dislocation and she is brought the operating room for closed reduction. Procedure alternatives risks benefits and complications were discussed in detail. She does have a history of COVID and the COVID protocol was utilized as she continues to test positive. Surgeon: Alyx Bird Anesthesia Type: General Operative Notes Findings: Left hip reduced with axial traction flexion and adduction. Reduction was smooth and was not difficult. Closure Type: not applicable Specimen(s): none sent Blood products transfused: none Procedure in detail: Patient was brought to the operating room. She underwent induction of general anesthesia. She was carefully transferred to the OR table. Anesthesia paralyzed her with general anesthesia and intubated her because of her testing positive for COVID. The patient's hip was flexed more than 90? axial traction was pulled and with internal rotation and gentle rotation her hip was reduced without difficulty. AP and cross-table lateral showed concentric reduction. She tolerated the procedure well. Complications: none Post-operative Condition: stable Disposition: observation Plan for aftercare: The patient will be maintained on a standard total hip replacement protocol with weight bearing as tolerated and posterior hip precautions. The patient will receive Aspirin for DVT prophylaxis. The patient will be discharged home when safe for the home environment.
--- NOTE | 2023-08-07 08:53 | SUR.PHASEI ---
report called to
--- NOTE | 2023-08-07 10:02 | SUR.PHASEI ---
Patient transferred to the floor. Report given to Juli. Condition stable. IV patent.
[2023-08-07] MEDS: ASPIRIN EC 81 MG TABLET PO (10:13)
[2023-08-07] MEDS: DOCUSATE 100 MG CAPSULE PO (10:13)
--- NOTE | 2023-08-07 11:27 | CM.DANOTE ---
DCP: Case received, EMR reviewed. Called patient's room and conversed with her, did not enter room due to her being COVID positive. Introduced self and role over the phone. Completed DCP assessment based upon information currently available. Patient is a 73 year old female who admitted yesterday evening to the care of the orthopedic team. PCP: Dr. Hugo. Payer: confirmed: [facility]. Patient came to the hospital as a direct admit from orthopedics secondary to increased hip pain. Patient had a left total hip arthroplasty about 5 years ago, according to notes. She also had a recent total knee arthroplasty, and tested positive for COVID about 10 days ago. Notes indicate that patient stated that she twisted in a funny position leaning over, and slipped and felt a pop and pain in her left hip. Prior to this incident, she was not having any hip pain.Orthopedics recommended a closed reduction of her left hip. She had been in the ER at [facility], and they attempted closed resuction, but were unsuccessful. Patient had a closed reduction procedure this morning. Patient is back in her room. Called her room, since she is positive for COVID. Patient is pleasant, and confirmed that she resides in [facility]. She is , stated, she has plenty of family to help her at home. P: Patient has discharge orders for home today. Blanca Hawk RN/Formula Room Worker Discharge Planning/Care Management Advanced directive, confirm from FAMILY Start: 08/07/23 00:39 Freq: Q24H Status: Active Protocol: Document 08/07/23 09:50 SB (Rec: 08/07/23 11:25 SB [id number]) Advance Directive, confirm on record Time 11:25 Person contacted patient Copy received No CM Discharge Assessment Start: 08/07/23 11:24 Freq: Status: Active Protocol: Document 08/07/23 11:24 VM (Rec: 08/07/23 11:26 VM [id number]) Discharge Planning Assessment Assigned Comfort Advisor Blanca Hawk RN/Formula Room Worker Advance Directives? Yes Advance Directives on File No History Provided By Patient,Medical Record Prior Living Arrangements House Household Members family Type of transporation used prior to Drives own vehicle admit Independent with ADL's Yes Is patient alert and oriented? Yes Caregiver for Another No DME Already Rented / Owned FWW / Walker Patient/Family Preference OP PT Therapy Barriers to Discharge No Comment Patent has family, son staying with her, and grandaughters. Discharge Plan Home Referrals Initiated None needed Whiteboard Updated in Patient Room with No name and ext. # of Comfort Advisor Comment Patient is COVID positive, called her room. Review Status In Process Next Review Type Continued Stay Review
--- NOTE | 2023-08-07 14:44 | PT.IIE ---
Current Diagnoses Unspecified dislocation of left hip, initial encounter (08/06/23) COVID-19 (08/06/23) Surgery Performed Operation Date: 08/07/23 08:00 Actual Procedures p Closed Reduction Dislocated Hip(Left) - Alyx Bird MD Surgical History (Last Reviewed 08/07/23 @ 08:03 by Alyx Bird MD) History of bunionectomy of both great toes History of carpal tunnel release History of orthopedic surgery (08/2022) History of total left hip replacement (08/30/18) Hx of nasal septoplasty S/P trigger finger release (~04/2018) Status post laparoscopic Crista fundoplication Medical History (Last Reviewed 08/07/23 @ 08:03 by Alyx Bird MD) Bilateral primary osteoarthritis of hip GERD (gastroesophageal reflux disease) History of COVID-19 (10/2020) Hyperlipidemia Insomnia Rosacea Shingles Type 2 diabetes mellitus Physical Therapy Inpatient Evaluation/Re-Eval M1 PT/OT-IP Prior Functional Status Start: 08/07/23 17:32 Freq: NEEDED Status: Active Protocol: Document 08/07/23 14:44 AB (Rec: 08/07/23 17:41 AB [id number]) Medical Review Prior Functional Status Medical History Reviewed Yes Communication able to make needs known Mobility and Gait pt stated that she was modified independent with all mobiltiies and ambulation using a FWW/4WW: pt with recent TKA ~ 3 months ago per pt Social History Household Members family Living Arrangements House Number of Floors (Floors) One Floor Number of Stairs To Enter/Railing? has a chair lift to get into 2nd floor bedroom no steps to enter Home Environment Walk in Shower Home Equipment Front Wheel Walker,Four Wheel Walker,Raised Toilet Seat w/ Armrests,Shower Seat with Backrest,Grab Bars Near Toilet ,Grab Bars In Shower Additional Social History Comment pt lives with her daughter and son-in-law M2 PT-IP Current Condition Start: 08/07/23 17:32 Freq: NEEDED Status: Active Protocol: Document 08/07/23 14:44 AB (Rec: 08/07/23 17:41 AB [id number]) Physical Therapy Current Condition Current Condition Evaluation Date 08/07/23 Treatment Diagnosis L JULIANO dislocation s/p closed reduction; difficulty in walking Onset Date 08/06/23 M3 PT-IP Subjective Start: 08/07/23 17:32 Freq: NEEDED Status: Active Protocol: Document 08/07/23 14:44 AB (Rec: 08/07/23 17:41 AB [id number]) Subjective Physical Therapy Visit Type Type Initial Evaluation Visit Start Time 14:44 Visit Stop Time 15:10 Number of CONSTRUCTION STONEMASON Visits 0 Physical Therapy Visit Comments Patient Comments wants to go home M4 PT-IP Mobility and Gait Start: 08/07/23 17:32 Freq: NEEDED Status: Active Protocol: Document 08/07/23 14:44 AB (Rec: 08/07/23 17:41 AB [id number]) PT-Bed Mobility Assessment Supine to Sit Supine to Sit Standby Assistance Sit to Supine Sit to Supine Standby Assistance PT-Transfer Assessment Sit to and From Stand Sit to and from Stand Standby Assistance,1 Person Assistance,Use of Upper Extremities Equipment Transfer Assistive Device Gait Belt,Front Wheeled Walker Orthotic/Prosthetic Devices or Brace: No Comments Mobility Comments pt sitting on EOB and wants to go home. obtained PLOF and home set up. educated posterior hip precautions with pt and pt is able to recall. provided hand-outs for hip precautions. pt completed sit <>supine SBA. completed sit to stand from EOB SBA and ambulated in room using FWW SBA ~ 30 ft. pt sat back on EOB. nurse informed for d/c. Gait Assessment Gait Gait Assistance Required: Standby Assistance Distance (Feet) 30 Able to Maintain Weight Bearing Status Yes During Gait Assistive Devices Assistive Device Gait Belt,Front Wheeled Walker Orthotic/Prosthetic Devices or Brace: No Gait Deviations General Gait Pattern Ataxic,Decreased Feet Clearance Factors Limiting Gait Function Factors Limiting Gait Function Decreased Activity Tolerance, Decreased Strength,Limited Range of Motion,Pain,Poor Balance,Poor Safety Awareness PT-Balance Assessment Sitting Balance and Reactions Static Sitting Balance Ability Normal Dynamic Sitting Balance Ability Normal Standing Balance and Reactions Static Standing Balance Ability Good Dynamic Standing Balance Ability Fair Device Used FWW M5 PT-IP Objective Assessments Start: 08/07/23 17:32 Freq: NEEDED Status: Active Protocol: Document 08/07/23 14:44 AB (Rec: 08/07/23 17:41 AB [id number]) Orientation Orientation/Cognition Level of Alertness Alert Orientation Name Language Function Ability No Deficits Noted Safety Awareness Decreased Safety Awareness Memory Description No Deficits Noted Gross Range of Motion Lower Extremity ROM Assessment Within Functional Limits Strength Lower Extremity Strength Assessment Within Functional Limits Muscle Tone Muscle Tone WNL Yes M6 PT-IP Treatment Start: 08/07/23 17:32 Freq: NEEDED Status: Active Protocol: Document 08/07/23 14:44 AB (Rec: 08/07/23 17:41 AB [id number]) Physical Therapy Treatment Education Education Provided Precautions,Weight Bearing Status,Post-Op Packet,Safety M7 PT-IP Assessment and Plan Start: 08/07/23 17:32 Freq: NEEDED Status: Active Protocol: Document 08/07/23 14:44 AB (Rec: 08/07/23 17:41 AB [id number]) PT Summary Assessment and Plan Potential Rehabilitation Potential Good Status of Condition at Evaluation Stable Summary Impairments Pain,ROM,Strength,Balance, Coordination,Sensation,Tone, Cognition,Bed Mobility, Transfers,Gait,Activity Tolerance Assessment Summary pt is a 73 y/o F with L JULIANO dislocation s/p closed reduction. pt with L hip posterior precautions and is WBAT. pt requiring SBA with mobility and is aware of her precautions. pt lives with her daughter and son -in-law who will assist pt as needed. pt may go home when stable. Goals Bed Mobility Goal Independent Transfer Goal Independent,Front Wheeled Walker,Four Wheeled Walker Gait Goal Independent,Front Wheel Walker ,Four Wheel Walker Gait Distance 250 Days to Meet Goals 3 Frequency of Treatment Frequency Of Treatment Once a Day Precautions Posterior Hip Precautions No Hip Flexion > 90 degrees,No Hip Internal Rotation,No Hip Adduction Other Precautions covid droplet precautions Weight Bearing Status Weight Bearing Status Weight Bear as Tolerated Allowed Weight Bearing Amount (enter % LLE WBAT or #) (%) Recommendations To Nursing Amount of Assist Needed Standby Assistance Discharge Recommendations PT Discharge Recommendations Home with Assistance, Outpatient PT Transportation Needs at Discharge Private Vehicle
--- NOTE | 2023-08-07 15:01 | PC.NURSE ---
Day shift: Pt returned from OR this AM at 0900. Pt denies pain, OOB with SBA + FWW. Pt verbalizes understanding of posterior hip precautions. PT Tamar saw patient this afternoon. Discharge instructions went over with patient - all questions answered, patient stated understanding. PIV removed prior to discharge. All belongings with patient. Pt's daughter met patient at entrance to drive her home - PCT Vianca escorted patient to exit via wheelchair.
== END 2023-08-07 15:07 | disposition home or self-care (01) ==
PROVIDERS: Admitting Provider Orthopaedic Surgery; PCP Registered Nurse; Referring Provider Orthopaedic Surgery; Visit Provider Orthopaedic Surgery
PROC: (CPT 27266; principal; 2023-08-07 08:00)
DX: T84.021A Dislocation of internal left hip prosthesis, initial encounter (principal); U07.1 COVID-19; E11.9 Type 2 diabetes mellitus without complications; E78.5 Hyperlipidemia, unspecified; K21.9 Gastro-esophageal reflux disease without esophagitis; Z79.84 Long term (current) use of oral hypoglycemic drugs
CPT/HCPCS: 27266; 73502; 76000; 82962; 87635; 97161; G0378; G0379; J0330; J1100; J2405; J2704; J3010; J3490